=== PATIENT | male | born 1950 | race African-American/Black ===

== ENCOUNTER 2018-03-13 06:25 | Emergency (ER) | payer MEDICARE ==
[2018-03-13] MEDS ORDERED: Dexamethasone 10 MG/ML VIAL ONE (06:52)
[2018-03-13 07:05] LABS: #Basophils 0.1 thou/uL (0.0-0.2); #Eosinphils 0.4 thou/uL (0.0-0.7); #Lymphocytes 1.6 thou/uL (1.20-3.40); #Monocytes 1.2 thou/uL (0.11-0.59); #Neutrophils 5.9 thou/uL (1.40-6.50); %Basophils 0.6 % (0.0-1.0); %Eosinophils 3.9 % (0.0-10.0); %Lymphocytes 17.4 % (21.0-51.0); %Monocytes 13.3 % (0.0-10.0); %Neutrophils 64.8 % (42.0-75.0); Hemoglobin 12.6 g/dL (14.0-18.0); Mean Corpuscular HGB CONC 33.9 g/dL (32.0-36.0); Mean Corpuscular Volume 85.5 fL (78.0-98.0); Mean Platelet Volume 8.7 fL (7.4-10.4); Platelet Count 302 thou/uL (130-400); RBC Distribution Width 12.8 % (11.5-14.5); Red Blood Cell (RBC) Count 4.37 mill/uL (4.70-6.10); White Blood Cell (WBC) Count 9.1 thou/uL (4.8-10.8)
[2018-03-13 07:13] LABS: ALT (SGPT) Less than 7 U/L (8-55); AST (SGOT) 15 U/L (5-34); Albumin 3.7 g/dL (3.4-4.8); Alkaline Phosphatase 99 U/L (40-150); Anion Gap 11 mmol/L (10-20); BUN (Urea Nitrogen) 15 mg/dL (8.4-25.7); Bilirubin, Total 0.7 mg/dL (0.2-1.2); Calc. Creatinine Clearance 0 mL/min (70-130); Calcium 9.2 mg/dL (7.8-10.44); Carbon Dioxide 24 mmol/L (23-31); Chloride 104 mmol/L (98-107); Estimated GFR-MDRD 54; Globulin 4.9 g/dL (2.4-3.5); Glucose 113 mg/dL (80-115); Potassium 4.1 mmol/L (3.5-5.1); Protein, Total 8.6 g/dL (5.8-8.1); Sodium 135 mmol/L (136-145)
[2018-03-13 07:18] LABS: CKMB 0.9 ng/mL (0-6.6); Troponin I Less than 0.010 ng/mL (< 0.028)
--- NOTE | 2018-03-13 08:12 | RAD ---
2 VIEWS CHEST: Date: 03/13/18 COMPARISON: 09/02/16. HISTORY: Shortness of breath and cough that started on Tuesday. FINDINGS: Two views of the chest show normal sized cardiomediastinal silhouette. There is no evidence of consol idation, mass, or pleural effusion. Degenerative changes are seen in the spine. IMPRESSION: No evidence of acute cardiopulmonary disease. POS: [facility]
== END 2018-03-13 08:12 | disposition home or self-care (01) ==
LOC: ERS 06:25
DX: J40 Bronchitis, not specified as acute or chronic (principal); I25.10 Atherosclerotic heart disease of native coronary artery without angina pectoris; I10 Essential (primary) hypertension; F17.210 Nicotine dependence, cigarettes, uncomplicated; Z79.82 Long term (current) use of aspirin
CPT/HCPCS: 71046; 80053; 82553; 83880; 84484; 85025; 93005; 94640; 94760; 96374; J1100; J7620

== ENCOUNTER 2018-03-16 08:51 | Inpatient (IN) | payer MEDICARE ==
[2018-03-16 09:25] LABS: #Basophils 0.1 thou/uL (0.0-0.2); #Eosinphils 0.3 thou/uL (0.0-0.7); #Monocytes 0.6 thou/uL (0.11-0.59); #Neutrophils 7.1 thou/uL (1.40-6.50); %Basophils 0.7 % (0.0-1.0); %Eosinophils 3.4 % (0.0-10.0); %Lymphocytes 11.2 % (21.0-51.0); %Monocytes 6.6 % (0.0-10.0); %Neutrophils 78.1 % (42.0-75.0); Hemoglobin 12.7 g/dL (14.0-18.0); Mean Corpuscular HGB CONC 33.5 g/dL (32.0-36.0); Mean Corpuscular Hemoglobin 28.8 pg (27.0-31.0); Mean Corpuscular Volume 85.9 fL (78.0-98.0); Mean Platelet Volume 8.2 fL (7.4-10.4); Platelet Count 370 thou/uL (130-400); RBC Distribution Width 12.7 % (11.5-14.5); Red Blood Cell (RBC) Count 4.42 mill/uL (4.70-6.10); White Blood Cell (WBC) Count 9.1 thou/uL (4.8-10.8)
[2018-03-16 09:51] LABS: ALT (SGPT) 24 U/L (8-55); AST (SGOT) 33 U/L (5-34); Albumin 3.8 g/dL (3.4-4.8); Alkaline Phosphatase 119 U/L (40-150); Anion Gap 13 mmol/L (10-20); BUN (Urea Nitrogen) 20 mg/dL (8.4-25.7); Bilirubin, Total 0.5 mg/dL (0.2-1.2); CK (CPK) 240 U/L (30-200); Calc. Creatinine Clearance 0 mL/min (70-130); Calcium 9.1 mg/dL (7.8-10.44); Carbon Dioxide 21 mmol/L (23-31); Chloride 107 mmol/L (98-107); Estimated GFR-MDRD 54; Globulin 4.4 g/dL (2.4-3.5); Glucose 110 mg/dL (80-115); Potassium 4.6 mmol/L (3.5-5.1); Protein, Total 8.2 g/dL (5.8-8.1); Sodium 136 mmol/L (136-145)
[2018-03-16 09:55] LABS: CKMB 1.8 ng/mL (0-6.6); Troponin I Less than 0.010 ng/mL (< 0.028)
[2018-03-16] MEDS ORDERED: Piperacillin/Tazobactam 4.5 GM VIAL ONE (10:18)
--- NOTE | 2018-03-16 10:28 | RAD ---
PORTABLE CHEST: HISTORY: Dyspnea. COMPARISON: 03/13/2018 FINDINGS: Increased interstitial and hazy alveolar densities in the lung bases may represent mild infiltrate. The mid and upper lung crane are clear and unchanged. The heart and mediastinum are unremarkable. IMPRESSION: Question hazy lower lobe infiltrate. Upright PA and lateral views of the chest are recommended for better evaluation. POS: [facility]
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
[2018-03-16] MEDS ORDERED: Ondansetron ODT 4 MG TAB PO PRN (12:12)
[2018-03-16] MEDS ORDERED: Acetaminophen 325 MG TAB PO PRN ×2 (12:12→12:13)
[2018-03-16] MEDS ORDERED: Ondansetron ODT 4 MG TAB SL PRN (12:13)
[2018-03-16] MEDS ORDERED: Ondansetron PF 4 MG/2 ML Vial IVP PRN (12:13)
[2018-03-16] MEDS ORDERED: Albuterol Sulfate 1.25 MG/3 ML NEB NEB SCH (15:00)
[2018-03-16 15:02] VITALS: BMI 23.8
[2018-03-16] MEDS ORDERED: Albuterol Sulfate 2.5 mg/3 ml Neb NEB PRN (16:16)
[2018-03-16] MEDS: Nicotine 14 MG PATCH TD SCH (16:38)
[2018-03-16] MEDS ORDERED: Albuterol Sulfate 2.5 mg/3 ml Neb NEB SCH (17:00)
[2018-03-16] MEDS: guaiFENesin/DM ER PO SCH (20:50)
[2018-03-16] MEDS ORDERED: Benzonatate 100 MG CAP PO PRN (20:58)
--- NOTE | 2018-03-17 06:48 | PDOC.FM ---
- Subjective Subjective: NAEO. Patient states he feels well this AM. Denies any chest pain and says his SOB and cough have improved since admission. Still endorses a productive cough though. Denies any fever/chills or N/V. States he would like to quit smoking and is willing to try medication for this. - Objective MAR Reviewed: Yes Vital Signs & Weight: Vital Signs (12 hours) Temp Pulse Resp BP Pulse Ox 03/17/18 03:00 98.1 F 80 18 165/64 H 93 L 03/17/18 02:37 93 L 03/16/18 23:00 98.1 F 87 16 170/62 H 95 03/16/18 20:00 95 03/16/18 19:54 98.1 F 104 H 18 159/61 H 95 03/16/18 19:01 83 16 93 L Weight Weight 73.255 kg Result Diagrams: 03/16/18 09:13 03/17/18 03:39 <Cristiana Draper - Last Filed: 03/17/18 09:25> - Objective Vital Signs & Weight: Vital Signs (12 hours) Temp Pulse Resp BP BP Pulse Ox 03/17/18 10:54 97.8 F 82 22 H 157/72 H 92 L 03/17/18 09:27 171/73 H 03/17/18 09:25 94 L 03/17/18 07:06 94 L 03/17/18 07:04 89 20 94 L 03/17/18 07:00 97.5 F L 89 19 171/73 H 94 L 03/17/18 03:00 98.1 F 80 18 165/64 H 93 L 03/17/18 02:37 93 L Weight Weight 73.255 kg Result Diagrams: 03/16/18 09:13 03/17/18 03:39 <Geoffrey Ramos - Last Filed: 03/17/18 12:54> Phys Exam - Physical Examination Constitutional: NAD HEENT: moist MMs Neck: supple, full ROM Respiratory: wheezing present Diffuse wheezing heard throughout with coarse breath sounds most prominent in middle and lower lung crane; no increased work of breathing Cardiovascular: RRR, no significant murmur Gastrointestinal: no distention, positive bowel sounds Musculoskeletal: no edema, pulses present Neurological: non-focal, normal sensation, moves all 4 limbs Psychiatric: normal affect, A&O x 3 Skin: no rash, normal turgor Deviation from normal: digital clubbing noted <Cristiana Draper - Last Filed: 03/17/18 09:25> Dx/Plan (1) CKD (chronic kidney disease) stage 2, GFR 60-89 ml/min Code(s): N18.2 - CHRONIC KIDNEY DISEASE, STAGE 2 (MILD) Status: Chronic (2) HTN (hypertension) Code(s): I10 - ESSENTIAL (PRIMARY) HYPERTENSION Status: Chronic (3) Tobacco abuse Code(s): Z72.0 - TOBACCO USE Status: Chronic (4) Coronary artery disease Code(s): I25.10 - ATHSCL HEART DISEASE OF [place] CORONARY ARTERY W/O ANG PCTRS Status: Chronic (5) HLD (hyperlipidemia) Code(s): E78.5 - HYPERLIPIDEMIA, UNSPECIFIED Status: Chronic (6) Stented coronary artery Status: Chronic - Plan Plan: 67YOM w/ a PMH significant for HTN, HLD, CAD s/p stent placement, and tobacco use who presented to the ED with a CC of SOB that has been ongoing since last Tuesday. Suspected acute on chronic COPD exacerbation - Could be 2/2 bronchitis vs. questionable PNA. - CXR showed questionable B/L infiltrates. No elevated WBC or fever. Procal downtrended from 0.22 to 0.16 yesterday. - Will continue on ANGELIKA Duonebs but try to decrease frequency as tolerated by the patient. Will also continue PRN albuterol for SOB. - Will continue tessalon pearls & mucinex for cough. - Will coninue ANGELIKA PO steroids & levaquin. - Will continue PRN O2 supplementation to maintain adequate O2 sats. Patient satted between 93-99% on RA since admission. Suspected COPD - Patient has never been formally diagnosed with COPD but CXR is consistent w/ hyperexpansion consistent w/ COPD. - Patient also has a significant smoking history and clinical signs of chronic hypoxia including digital clubbing on exam. - Will consider initiating an ICS/LABA combo upon d/c and recommend follow-up w / PCP for PFTs to confirm diagnosis. CKD stage II - CKD documented as stage II per last clinic labs done 1 year ago. - BUN and Cr WNLs at 14/0.86 w/ eGFr of 90 after receiving IVFs yesterday. - Possible resolution of underlying kidney disease. Will continue to monitor. CAD s/p stent placement - Will resume home meds. HTN - Will resume home lisinopril but will increase dosage to 10mg QD given poorly controlled BP overnight w/ SBP ranging from 159-173. - Will continue to monitor closely. tobacco use - Nicotine patch. - Patient states he would like to quit smoking and is willing to try medication to help with this. - Will initiate therapy with wellbutrin. IVFs: none Abx: Levaquin DVT PPx: Lovenox GI PPx: famotidine Dispo: Possible d/c later today on Abx, steroids, and an ICS/LABA combination inhaler w/ recommendations to follow-up with PCP for PFTs to confirm COPD. <Cristiana Draper - Last Filed: 03/17/18 09:25> Attending Addendum - Attending Addendum Date/Time: 03/17/18 1253 I personally evaluated the patient and discussed the management with Dr. Draper. I agree with the History, Examination, Assessment and Plan documented above with any addition or exceptions noted below. With a low PCT, we can stop antibiotics. <Geoffrey Ramos - Last Filed: 03/17/18 12:54>
[2018-03-17 07:07] LABS: Anion Gap 13 mmol/L (10-20); BUN (Urea Nitrogen) 14 mg/dL (8.4-25.7); Calc. Creatinine Clearance 85 mL/min (70-130); Calcium 8.8 mg/dL (7.8-10.44); Carbon Dioxide 21 mmol/L (23-31); Chloride 109 mmol/L (98-107); Estimated GFR-MDRD Greater than 90; Glucose 90 mg/dL (80-115); Potassium 4.3 mmol/L (3.5-5.1); Sodium 139 mmol/L (136-145)
[2018-03-17] MEDS ORDERED: predniSONE 20 MG TAB PO SCH (08:00)
[2018-03-17] MEDS ORDERED: Lisinopril 10 MG TAB PO SCH (09:00)
[2018-03-17] MEDS ORDERED: Famotidine 20 MG TAB PO SCH (09:00)
[2018-03-17] MEDS ORDERED: Enoxaparin Sodium 40 MG/0.4 ML SYRINGE SC SCH (09:00)
[2018-03-17] MEDS ORDERED: Lisinopril 2.5 MG TAB PO SCH (09:00)
[2018-03-17] MEDS ORDERED: Aspirin 81 mg Enteric Coated Tablet PO SCH (09:00)
[2018-03-17] MEDS ORDERED: Clopidogrel Bisulfate 75 MG TAB PO SCH (09:00)
[2018-03-17] MEDS: guaiFENesin/DM ER PO SCH (09:26)
[2018-03-17] MEDS ORDERED: Bupropion 150 MG SR TAB PO SCH (12:00)
[2018-03-17] MEDS: Nicotine 14 MG PATCH TD SCH (12:35)
[2018-03-17 16:36] VITALS: TEMP 97.6
[2018-03-17 18:13] VITALS: BP 180/60
--- NOTE | 2018-03-17 18:28 | PDOC.EVN ---
Event Note - Event Note Event Note: Checked a manual BP at bedside at ~18:15 that was 180/63. Patient denied having any alarm symptoms such as headache, vision changes, chest pain, or SOB. Counseled patient and family about dangers of dramatically lowering BP too quickly and increased risk of stroke associated with this, which is why we currently opted not to treat the patient's BP before discharge. Also reiterated that if patient does develop any alarm symptoms such as the ones he denied that he should report to the ED for evaluation. Patient and family endorsed understanding. Instructed the patient to schedule an appt / [facility] physicians first thing Tuesday morning to be seen and evaluated for better HTN control on an outpatient basis.
[2018-03-17] MEDS ORDERED: Atorvastatin Calcium 40 MG TAB PO SCH (21:00)
--- NOTE | 2018-03-18 02:20 | DIS-2 ---
DATE OF ADMISSION: 03/16/2018 DATE OF DISCHARGE: 03/17/2018 RESIDENT: Cristiana Draper M.D. ADMITTING ATTENDING: Aida Queen M.D. DISCHARGE ATTENDING: Aida Queen M.D. CONSULTS: None. PROCEDURES: Chest x-ray which showed questionable hazy lower lobe infiltrates with an unremarkable h eart and mediastinum. PRIMARY DIAGNOSES: 1. Suspected acute chronic obstructive pulmonary disease exacerbation secondary to bronchitis or pos sible bacterial pneumonia. 2. Hypertension. 3. Tobacco abuse. SECONDARY DIAGNOSES: 1. Coronary artery disease. 2. Hyperlipidemia. 3. Chronic kidney disease stage 2. DISCHARGE MEDICATIONS: 1. Albuterol sulfate 90 mcg inhaled q.i.d. p.r.n. 2. Aspirin 81 mg p.o. daily. 3. Tessalon 100 mg capsules p.o. every 8 hours p.r.n. for cough. 4. Atorvastatin calcium 40 mg p.o. at bedtime. 5. Mucinex DM 1 tab p.o. every 12 hours for cough. 6. Lisinopril 10 mg p.o. daily. 7. Prednisone 20 mg p.o. for 3 days. 8. Spiriva HandiHaler 18 mcg inhaled daily. 9. Wellbutrin-SR 150 mg p.o. daily for 2 days and b.i.d. for the remaining prescription. 10. Levaquin 750 mg p.o. daily for 30 days. DISCONTINUED MEDICATIONS: The only medication is azithromycin 250 mg tablets p.o. daily. HISTORY OF PRESENT ILLNESS AND HOSPITAL COURSE: The patient is a 67-year-old -[place] gentle man with a past medical history significant for [id number] smoking history as well as coronary maggie ry disease status post stent placement x1, hypertension, and hyperlipidemia who presented to the [facility] with chief complaint of increased shortness of breath and cough that started last Fr iday. Of note, the patient was seen in the emergency department on 03/13/2018 for similar symptoms w ere diagnosed with bronchitis and sent home on a Z-John and albuterol inhaler and Tessalon Perles. Ho wever, the patient reported that his symptoms did not improve after being on these medications and at tempted to make an appointment with his PCP, but was unable to be seen by them, so subsequently repor dirk to the emergency department for further evaluation. On presentation to the emergency department, the patient's vitals were significant for slightly elevated blood pressure of 164/68; however, the p atient was breathing normally and satting 91% on room air. Routine labs and chest x-ray were obtaine d, which revealed the patient had a normal white blood cell count of 9.1 and a slightly worsened lolis l function with a creatinine of 1.56 and an estimated GFR of 54. His BNP was only mildly elevated at 142 and his initial procalcitonin was in the indeterminate range of 0.22. His lactic acid was withi n normal limits at 0.8. The patient's chest x-ray was significant for some questionable bilateral op acities in the bases, so he was given one dose of IV vancomycin and Zosyn as well as 1 liter of vijaya l saline and 2 DuoNeb treatments in the emergency department. He was then continued on normal saline at 30 mL per kilogram and moved to the floor for evaluation by the medical team and close observatio n overnight. Upon initial evaluation by the medical team, the patient was noted to have significant wheezing and rhonchi throughout and was therefore started on scheduled DuoNebs, p.o. steroids, transi tioned to p.o. Levaquin for antibiotics with albuterol available via respiratory therapy p.r.n. The patient received scheduled DuoNeb treatments overnight and by the following morning was feeling his s ymptoms had significantly improved. He stated he would possibly be willing to go home later today. Of note, the patient's renal function significantly improved after receiving a liter of IV fluids in the emergency department so much that by the day morning of discharge. His creatinine had decreased to 0.86 and his eGFR was estimated at greater than 90. The patient's procalcitonin had also downtren ded to 0.16. The patient's DuoNebs were therefore switched from scheduled to p.r.n. after the patien t received one additional scheduled dose early the morning of discharge. After evaluating him later that afternoon, the patient stated that he felt much improved and was ready to be discharged home on p.o. antibiotics and steroids. He was therefore cleared to be discharged home as his pulmonary exam was markedly improved and instructed to schedule followup appointment with his PCP 1 day next week. The patient endorsed understanding. Regarding the patient's hypertension, the patient reported that his primary care physician had taken him off all antihypertensive medications and per clinic chart re view, he has only documented antihypertensive medicine was lisinopril 2.5 mg p.o. daily. However, th e patient's blood pressure remained significantly elevated overnight with systolic pressures ranging from 173-159 overnight. His daily lisinopril dose was therefore increased from 2.5 to 10 mg p.o. silvio ly and he was instructed to follow up with his primary care physician regarding close monitoring of t his hypertension. DISCHARGE DISPOSITION: Stable. DISCHARGE INSTRUCTIONS: 1. Location: Home. 2. Diet: Heart healthy diet, low sodium diet. 3. Activity: Activity as tolerated. 4. Followup: The patient was instructed to follow up with his primary care physician, Dr. Kieran santa at [facility] within 1 week of discharge.
[2018-03-18] MEDS ORDERED: Bupropion 150 MG SR TAB PO SCH (09:00)
--- NOTE | 2018-03-18 23:07 | EKG ---
Test Reason : SOB Blood Pressure : / mmHG Vent. Rate : 077 BPM Atrial Rate : 077 BPM P-R Int : 122 ms QRS Dur : 084 ms QT Int : 380 ms P-R-T Axes : 072 053 048 degrees QTc Int : 430 ms Normal sinus rhythm Voltage criteria for left ventricular hypertrophy Abnormal ECG Confirmed by KATHLEEN DAVIS ([id number]), editorial assistant FADI PATINO ([id number]) on 03/18/2018 11:07:23 PM Referred By: RYAN Confirmed By:KATHLEEN DAVIS
== END 2018-03-17 18:40 | disposition home or self-care (01) | DRG 192 ==
LOC: ERS 08:51 → T4-A 10:35
PROVIDERS: ADMIT Family Medicine; ATTEND Family Medicine
DX: J44.1 Chronic obstructive pulmonary disease with (acute) exacerbation (principal); I25.10 Atherosclerotic heart disease of native coronary artery without angina pectoris; E78.5 Hyperlipidemia, unspecified; I12.9 Hypertensive chronic kidney disease with stage 1 through stage 4 chronic kidney disease, or unspecified chronic kidney disease; N18.2 Chronic kidney disease, stage 2 (mild); F17.210 Nicotine dependence, cigarettes, uncomplicated
CPT/HCPCS: 36415; 71045; 71046; 80048; 80053; 82553; 83605; 83880; 84145; 84484; 85025; 87040; 87804; 93005; 94640; 94760; 96374; J1100; J1650; J2543; J3370; J7506; J7620

== ENCOUNTER 2018-08-07 16:47 | Emergency (ER) | payer MEDICARE ==
--- NOTE | 2018-08-07 17:37 | RAD ---
RIGHT HIP THREE VIEWS: History: Right hip pain. FINDINGS: Mild joint space narrowing and osteophytosis. Femoral head contour maintained. No acute fracture, dis location, or aggressive osseous erosions. IMPRESSION: Mild osteoarthritic changes right hip. POS: [facility]
--- NOTE | 2018-08-07 17:51 | RAD ---
RIGHT SHOULDER THREE VIEWS: History: Right shoulder pain. FINDINGS: Acromioclavicular and glenohumeral alignment are maintained. Mild to moderate osteophytosis. Amorphis e calcification projects over the supraspinatus tendon. Similar in appearance to prior exam. No acute fracture, dislocation, or aggressive osseous erosions. IMPRESSION: Calcific tendinosis. Mild osteoarthritic changes. POS: [facility]
[2018-08-07] MEDS ORDERED: Dexamethasone 4 mg/ml Vial ONE (17:55)
[2018-08-07] MEDS ORDERED: Ketorolac Tromethamine 30 MG/ML VIAL ONE (17:55)
[2018-08-07] MEDS ORDERED: Dexamethasone 10 MG/ML VIAL ONE (17:59)
== END 2018-08-07 18:35 | disposition home or self-care (01) ==
LOC: ERS 16:47
DX: M75.31 Calcific tendinitis of right shoulder (principal); M54.5 Low back pain; M53.3 Sacrococcygeal disorders, not elsewhere classified; I25.10 Atherosclerotic heart disease of native coronary artery without angina pectoris; E78.5 Hyperlipidemia, unspecified; F17.210 Nicotine dependence, cigarettes, uncomplicated; I10 Essential (primary) hypertension; Z79.82 Long term (current) use of aspirin; Z79.51 Long term (current) use of inhaled steroids; Z79.899 Other long term (current) drug therapy
CPT/HCPCS: 96372; J1100; J1885

== ENCOUNTER 2018-08-09 21:27 | Emergency (ER) | payer MEDICARE ==
[2018-08-09] MEDS ORDERED: Cyclobenzaprine 10 MG TAB ONE (22:07)
== END 2018-08-09 22:10 | disposition home or self-care (01) ==
LOC: ERS 21:27
DX: M25.511 Pain in right shoulder (principal); E78.5 Hyperlipidemia, unspecified; I10 Essential (primary) hypertension; I25.10 Atherosclerotic heart disease of native coronary artery without angina pectoris; F17.210 Nicotine dependence, cigarettes, uncomplicated; Z79.899 Other long term (current) drug therapy; Z79.82 Long term (current) use of aspirin
CPT/HCPCS: 99282

== ENCOUNTER 2019-04-11 23:09 | Observation (INO) | payer MEDICARE ==
[2019-04-11 23:46] LABS: #Basophils 0.1 thou/uL (0.0-0.2); #Eosinphils 0.1 thou/uL (0.0-0.7); #Lymphocytes 1.9 thou/uL (1.20-3.40); #Monocytes 0.8 thou/uL (0.11-0.59); #Neutrophils 6.3 thou/uL (1.40-6.50); %Basophils 0.6 % (0.0-1.0); %Eosinophils 1.1 % (0.0-10.0); %Lymphocytes 20.4 % (21.0-51.0); %Monocytes 8.9 % (0.0-10.0); Mean Corpuscular HGB CONC 33.4 g/dL (32.0-36.0); Mean Corpuscular Hemoglobin 29.2 pg (27.0-31.0); Mean Corpuscular Volume 87.5 fL (78.0-98.0); Mean Platelet Volume 9.3 fL (7.4-10.4); Platelet Count 219 thou/uL (130-400); RBC Distribution Width 12.8 % (11.5-14.5); Red Blood Cell (RBC) Count 3.78 mill/uL (4.70-6.10); White Blood Cell (WBC) Count 9.2 thou/uL (4.8-10.8)
[2019-04-12 00:08] LABS: ALT (SGPT) Less than 7 U/L (8-55); AST (SGOT) 16 U/L (5-34); Albumin 3.4 g/dL (3.4-4.8); Alkaline Phosphatase 77 U/L (40-110); Anion Gap 12 mmol/L (10-20); BUN (Urea Nitrogen) 19 mg/dL (8.4-25.7); Bilirubin, Total 0.5 mg/dL (0.2-1.2); Calc. Creatinine Clearance 0 mL/min (70-130); Calcium 8.2 mg/dL (7.8-10.44); Carbon Dioxide 20 mmol/L (23-31); Chloride 109 mmol/L (98-107); Estimated GFR-MDRD 56; Globulin 3.7 g/dL (2.4-3.5); Glucose 108 mg/dL (80-115); Potassium 4.4 mmol/L (3.5-5.1); Protein, Total 7.1 g/dL (5.8-8.1); Sodium 137 mmol/L (136-145)
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
[2019-04-12] MEDS ORDERED: Ondansetron ODT 4 MG TAB PO PRN (01:46)
[2019-04-12] MEDS ORDERED: Acetaminophen 325 MG TAB PO PRN (01:46)
[2019-04-12 02:00] VITALS: BMI 24.0
[2019-04-12] MEDS ORDERED: Sodium Chloride 0.9% 1,000 ML IV SCH (02:00)
[2019-04-12 04:45] LABS: Amphetamine Not Detected (NotDetected); Barbiturates Screen Not Detected (NotDetected); Benzodiazepine Screen Not Detected (NotDetected); Cocaine Metabolite Screen Not Detected (NotDetected); Medtox Control Line Valid? VALID (VALID); Medtox Reader # READER 1; Methadone Not Detected (NotDetected); Methamphetamine Not Detected (NotDetected); Opiate Screen Not Detected (NotDetected); Oxycodone Screen Not Detected (NotDetected); Phencyclidine (PCP) Not Detected (NotDetected); THC/Cannabinoid Screen Detected (NotDetected); Tricyclic Screen Not Detected (NotDetected)
[2019-04-12 05:15] LABS: Cardiac Risk 4.6 (Less than 4.5)
[2019-04-12 05:17] LABS: Troponin I 0.013 ng/mL (< 0.028)
--- NOTE | 2019-04-12 08:01 | CT ---
PRELIMINARY REPORT/[facility]/EMERGENCY AFTER HOURS PROCEDURE: PROCEDURE INFORMATION: Exam: CT Head Without Contrast Exam date and time: 04/12/2019 12:23 AM Age: 68 years old Clinical history: Syncope and collapse; Patient HX: 68m reports to ED C/O witnessed syncope. PT repor ts he became dizzy, sweaty, and passed out for several seconds. When PT came to, PT reports he vomite d. PT denies cp, SOB, inconstinence. Medications aspirin. Pmhx stent (dr. Greco, 9 years ago, with stress test 1.5 months ago). reports PT stated his "stomach hurt, " went to the bathro , came back out and she heard him hit the floor. When she got to him, he came to and wasn't acting right, then passed out again TECHNIQUE: Imaging protocol: Computed tomography of the head without contrast. COMPARISON: No relevant prior studies available. FINDINGS: Brain: There is no acute intracranial hemorrhage, mass effect or midline shift. No large acute territ orial infarct identified. There are patchy regions of hypodensity in the periventricular and subcorti fariba white matter, likely on the basis of chronic microvascular ischemic disease. Ventricles: The ventricles and sulci are prominent in size, which is likely related to global cerebra l volume loss. Bones/joints: Unremarkable. No acute fracture. Sinuses: Visualized sinuses are unremarkable. No fluid levels. Mastoid air cells: Visualized mastoid air cells are well aerated. Soft tissues: Unremarkable. IMPRESSION: No acute intracranial hemorrhage, mass effect or midline shift. Thank you for allowing us to participate in the care of your patient. Dictated and Authenticated by: Eav Marrero MD 04/12/2019 12:40 AM Central Time ([place] & [place]) FINAL REPORT EMERGENCY AFTER HOURS CT BRAIN: I agree with the preliminary report provided by [facility]. No acute intracranial abnormality demonstrated. Exam is compared with prior dated 06/21/14. Basal carie glia calcifications are stable. Midline structures are not deviated. No acute infarct or hemorrhage i s noted. POS:
--- NOTE | 2019-04-12 08:16 | RAD ---
CHEST 1 VIEW: Date: 04/12/19 INDICATION: Syncopal episode. COMPARISON: Prior exam dated 03/16/18. FINDINGS: Chronic lung changes are stable. Mild cardiomegaly persists. No pleural effusion or pneumothorax is e vident. No acute osseous abnormality is noted. IMPRESSION: Stable chronic findings as above. POS: BH
[2019-04-12] MEDS ORDERED: Enoxaparin Sodium 40 MG/0.4 ML SYRINGE SC SCH (09:00)
[2019-04-12] MEDS ORDERED: Aspirin 81 mg Enteric Coated Tablet PO SCH (09:00)
[2019-04-12 11:15] VITALS: BP 167/70; TEMP 96.8
[2019-04-12] MEDS ORDERED: Rosuvastatin 20 MG TAB PO SCH (21:00)
--- NOTE | 2019-04-13 08:13 | DIS ---
DATE OF ADMISSION: 04/12/2019 DATE OF DISCHARGE: 04/12/2019 ADMITTING ATTENDING: Dr. Patel Echeverria DISCHARGE ATTENDING: Dr. Patel Echeverria RESIDENT: Dr. Ana Washington PROCEDURES: 1. Chest x-ray, stable, chronic lung changes with mild cardiomegaly. No pleural effusion or pneumothorax. No acute osseous abnormality. 2. Brain CT. No acute intracranial abnormality. Basal ganglia calcifications. Stable. No acute infarct or hemorrhage noted. 3. Echocardiogram, ejection fraction estimated at 55% to 60%. The left atrium is mildly dilated. Mild mitral regurgitation present. Moderate aortic stenosis present. Moderate aortic regurgitation noted. [id number] tricuspid regurgitation. PRIMARY DIAGNOSES: 1. Syncope and collapse, likely secondary to vasovagal episode. 2. Moderate aortic stenosis. 3. Hypertension. 4. History of coronary artery disease, status post stents x2. 5. Hyperlipidemia. 6. Chronic obstructive pulmonary disease. 7. Chronic kidney disease stage 2. DISCHARGE MEDICATIONS: 1. Albuterol sulfate 90 mcg inhalation q.4 hours p.r.n. 2. Aspirin 81 mg p.o. daily. 3. Rosuvastatin 20 mg p.o. at bedtime. 4. Amlodipine 5 mg p.o. daily. 5. Benzonatate 100 mg p.o. t.i.d. 6. Naproxen 375 mg p.o. b.i.d. 7. Cyclobenzaprine 10 mg p.o. t.i.d. HISTORY OF PRESENT ILLNESS/HOSPITAL COURSE: This is a 68-year-old male, who presented to the emergency department after having 2 syncopal events at home. The patient was reportedly smoking his turkey outside and walked into the house and went to the restroom. He then noted that he woke up on the ground, but family thinks he was only down for a few seconds. The patient denied any urinary incontinence, shaking, or postictal confusion. The patient had vomited prior to the event, but had not been sick with fever, chills, sweats, nausea, diarrhea, or any other ailment. The patient denied any shortness of breath, chest pain, or palpitations. He states that this has not happened before. The patient states he does follow up fairly closely with Dr. 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 He has been noted to have [id number] aortic stenosis in the past with the last echo being in 2017. The patient saw Dr. Werner approximately 3 to 4 months ago, at which time he had an EKG done and medication changes were made. He was started on Crestor 20 mg for hyperlipidemia as well as amlodipine for hypertension. The patient does have a history of coronary artery disease; however, he is not currently on a beta- samira. I am uncertain as to why he is not on a beta-samira unless it is secondary to his underlying COPD. The patient did well throughout the duration of his hospital stay. He was adamant that he go home. He refused labs to include the last troponin and a repeat BMP to further evaluate his kidney function. Of note, troponins were negative and stable and there was not any concern for NSTEMI. Additionally, the patient's creatinine appears to be at baseline, although given his renal function, it was advised that he have it repeated. He likely was dehydrated at the time the initial lab was drawn. The patient was agreeable to having the echo done, although we did let him leave prior to discharge and will notify him of the results. If he does have severe aortic stenosis requiring a TAVR procedure, then we will make sure this is coordinated through his primary care physician at [facility]. The patient was stable for discharge home. His orthostatics were negative. Return precautions were given. DISPOSITION: Stable. DISCHARGE INSTRUCTIONS: 1. Location: Home. 2. Activity: Cardiopulmonary limitations. 3. Diet: Heart healthy. 4. Followup: The patient is to follow up with his PCP within 7 days of discharge from the hospital, his PCP is [facility]. Additionally, the patient is to follow up with Dr. Werner within 7 days of discharge from the hospital. Job ID: [id number] [facility] CENTERKenny
--- NOTE | 2019-04-14 21:09 | EKG ---
Test Reason : Blood Pressure : / mmHG Vent. Rate : 069 BPM Atrial Rate : 069 BPM P-R Int : 138 ms QRS Dur : 096 ms QT Int : 406 ms P-R-T Axes : 067 059 053 degrees QTc Int : 435 ms Normal sinus rhythm Voltage criteria for left ventricular hypertrophy Abnormal ECG Confirmed by RAOUL RAMIREZ ([id number]), photograph editor FADI PATINO ([id number]) on 04/14/2019 9:07:42 PM Referred By: Confirmed By:RAOUL RAMIREZ
== END 2019-04-12 12:29 | disposition home or self-care (01) ==
LOC: ERS 23:09 → 2SW 04-12 01:31
PROVIDERS: ADMIT Student in an Organized Health Care Education/Training Program; ATTEND Student in an Organized Health Care Education/Training Program
DX: R55 Syncope and collapse (principal); I12.9 Hypertensive chronic kidney disease with stage 1 through stage 4 chronic kidney disease, or unspecified chronic kidney disease; N18.2 Chronic kidney disease, stage 2 (mild); I25.10 Atherosclerotic heart disease of native coronary artery without angina pectoris; E78.5 Hyperlipidemia, unspecified; J44.9 Chronic obstructive pulmonary disease, unspecified; F17.210 Nicotine dependence, cigarettes, uncomplicated; M19.90 Unspecified osteoarthritis, unspecified site; Z79.82 Long term (current) use of aspirin; Z79.899 Other long term (current) drug therapy; Z95.5 Presence of coronary angioplasty implant and graft; Z95.1 Presence of aortocoronary bypass graft
CPT/HCPCS: 70450; 71045; 80053; 80061; 80306; 84443; 84484 ×2; 85025; 93005; 93306; 96360; 96361; 96372; 97139; 99285; G0378; 36415; J1650

== ENCOUNTER 2019-06-10 12:37 | Emergency (ER) | payer MEDICARE ==
--- NOTE | 2019-06-10 13:27 | RAD ---
Portable chest: HISTORY: Abdominal pain and vomiting COMPARISON: 04/12/2019 FINDINGS: Lungs are clear of infiltrate. No evidence of vascular congestion. There is a new nodular d ensity overlying the left midlung measuring 1.8 cm. Recommend further investigation with chest CT. Heart and mediastinum unremarkable. Visualized osseous structures unremarkable. IMPRESSION:Evidence of new nodular density overlying left midlung. Recommend chest CT.
[2019-06-10] MEDS ORDERED: Ondansetron PF 4 MG/2 ML Vial ONE (13:43)
[2019-06-10 13:54] LABS: Mean Corpuscular Hemoglobin 28.5 pg (27.0-31.0); Mean Corpuscular Volume 86.3 fL (78.0-98.0); Mean Platelet Volume 9.9 fL (7.4-10.4); Platelet Count 209 thou/uL (130-400); RBC Distribution Width 12.9 % (11.5-14.5); Red Blood Cell (RBC) Count 4.57 mill/uL (4.70-6.10); White Blood Cell (WBC) Count 9.2 thou/uL (4.8-10.8)
[2019-06-10] MEDS ORDERED: Iopamidol-370 76% 500 ML 1 ML ONE (13:57)
[2019-06-10 14:10] LABS: Band 1 % (5-11); Lymphocytes 9 % (21-51); MDiff Complete? YES; Monocytes 8 % (0-10); Neutrophil 81 % (42-75); Platelet Morphology Comment Appears Adequate; RBC Morphology Normal; Vacuoles SLIGHT
[2019-06-10 14:15] LABS: ALT (SGPT) Less than 7 U/L (8-55); AST (SGOT) 16 U/L (5-34); Albumin 3.8 g/dL (3.4-4.8); Alkaline Phosphatase 85 U/L (40-110); Anion Gap 13 mmol/L (10-20); BUN (Urea Nitrogen) 19 mg/dL (8.4-25.7); Bilirubin, Total 0.8 mg/dL (0.2-1.2); Calc. Creatinine Clearance 0 mL/min (70-130); Calcium 8.9 mg/dL (7.8-10.44); Carbon Dioxide 22 mmol/L (23-31); Chloride 106 mmol/L (98-107); Estimated GFR-MDRD 53; Globulin 4.4 g/dL (2.4-3.5); Glucose 102 mg/dL (80-115); Potassium 4.5 mmol/L (3.5-5.1); Protein, Total 8.2 g/dL (5.8-8.1); Sodium 136 mmol/L (136-145)
[2019-06-10 14:32] LABS: Bacteria/HPF None Seen HPF (None Seen); Bilirubin Negative (Negative); Blood, Urine 1+ (Negative); Clarity Clear (Clear); Glucose, Urine (Dipstick) Normal (Negative); Leukocyte Negative Leu/uL (Negative); Nitrite Negative (Negative); Protein, Urine (Dipstick) Negative (Neg-Trace); RBC/HPF 0-3 HPF (0-3); Squamous Epithelial 0-3 HPF (0-3); Urobilinogen Normal mg/dL (Less than 2); WBC/HPF 0-3 HPF (0-3)
--- NOTE | 2019-06-10 15:05 | CT ---
EXAM: CT of the chest with contrast CT of the abdomen and pelvis with contrast HISTORY: Vomiting and fever that started this morning. Nodule seen on chest x-ray COMPARISON: Chest x-ray 06/10/2019 TECHNIQUE: 1. Multiple contiguous axial images were obtained in a CT the chest with contrast. Coronal and sagitt al reformats were performed. 2. Multiple contiguous axial images were obtained and a CT of the abdomen and pelvis with contrast. C oronal and sagittal reformats were performed. FINDINGS: CT CHEST: HEART: Normal in size without focal cardiac abnormality. Calcifications in the coronary arteries. MEDIASTINUM: No hilar or mediastinal lymphadenopathy. LUNGS: Emphysematous changes are seen in the lungs. There is a 1.8 cm spiculated nodule in the lingul a. 2 adjacent nodular opacities measuring up to 4 mm in size are seen in the right lower lobe on image 51 and 49. PLEURAL SPACE: No pneumothorax or pleural effusion. CHEST WALL SOFT TISSUES: Unremarkable CT ABDOMEN/PELVIS: ABDOMEN: LIVER: within normal limits. BILE DUCTS: Normal caliber. GALLBLADDER: No calcified gallstones. Normal caliber wall. PANCREAS: within normal limits. SPLEEN: within normal limits. ADRENALS: within normal limits. KIDNEYS: Nonobstructing punctate calcifications measuring up to 2 mm in size. PELVIS: REPRODUCTIVE ORGANS: No pelvic masses. URETERS: within normal limits. BLADDER: within normal limits. PERITONEUM: No ascites or free air, no fluid collection. BOWEL: Normal caliber. MESENTERY AND RETROPERITONEUM: No enlarged mesenteric or retroperitoneal lymph nodes. VESSELS: Atherosclerotic calcifications. ABDOMINAL WALL: within normal limits. OSSEOUS STRUCTURES: Degenerative changes in the spine. IMPRESSION: 1. Spiculated left upper lobe lung nodule. This is concerning for primary pulmonary malignancy. 2. No evidence of acute intra-abdominal/pelvic abnormality.
== END 2019-06-10 16:25 | disposition home or self-care (01) ==
LOC: ERS 12:37
DX: R11.2 Nausea with vomiting, unspecified (principal); R91.8 Other nonspecific abnormal finding of lung field; I25.10 Atherosclerotic heart disease of native coronary artery without angina pectoris; E78.5 Hyperlipidemia, unspecified; E78.00 Pure hypercholesterolemia, unspecified; I10 Essential (primary) hypertension; F17.210 Nicotine dependence, cigarettes, uncomplicated; Z79.82 Long term (current) use of aspirin; Z95.5 Presence of coronary angioplasty implant and graft; Z79.899 Other long term (current) drug therapy
CPT/HCPCS: 36415; 71045; 71260; 74177; 80053; 81003; 81015; 83605; 83690; 85025; 87804; 93005; 96361; 96374; J2405; Q9967

== ENCOUNTER 2020-09-01 13:32 | Outpatient (CLI) | payer MEDICARE | END 2020-09-01 13:33 | disposition home or self-care (01) | LOC: BICCT 13:32 | PROVIDERS: ATTEND Family Medicine | DX: I99.9 Unspecified disorder of circulatory system (principal); G93.89 Other specified disorders of brain | CPT/HCPCS: 70450 ==

== ENCOUNTER 2021-01-01 17:52 | Observation (INO) | payer MEDICARE ==
[2021-01-01 19:11] LABS: #Lymphocytes 0.6 thou/uL (1.20-3.40); #Neutrophils 0.9 thou/uL (1.40-6.50); %Basophils 1.5 % (0.0-1.0); %Eosinophils 0.6 % (0.0-10.0); %Lymphocytes 37.6 % (21.0-51.0); %Monocytes 2.7 % (0.0-10.0); %Neutrophils 57.5 % (42.0-75.0); Mean Corpuscular HGB CONC 34.7 g/dL (32.0-36.0); Mean Corpuscular Hemoglobin 30.1 pg (27.0-31.0); Mean Corpuscular Volume 86.7 fL (78.0-98.0); Mean Platelet Volume 6.8 fL (7.4-10.4); Platelet Count 44 thou/uL (130-400); RBC Distribution Width 17.3 % (11.5-14.5); White Blood Cell (WBC) Count 1.6 thou/uL (4.8-10.8)
[2021-01-01 19:30] LABS: Anisocytosis SLIGHT = 6-15 cells (100X) (0-5/hpf); MDiff Complete? YES; Ovalocytes SLIGHT = 2-5 cells (100X) (0-1/hpf); Platelet Morphology Comment Appears Decreased; Poikilocytosis SLIGHT = 6-15 cells (100X) (0-5/hpf); Polychromasia SLIGHT = 2-3 cells (100X) (0-2/hpf); Reflex for Review?? YES; Schistocytes SLIGHT = 2-5 cells (100X) (0-1/hpf); Tear Drops SLIGHT = 2-5 cells (100X) (0-1/hpf)
[2021-01-01 19:36] LABS: ALT (SGPT) 10 U/L (8-55); AST (SGOT) 15 U/L (5-34); Alkaline Phosphatase 49 U/L (40-110); Anion Gap 10 mmol/L (10-20); BUN (Urea Nitrogen) 27 mg/dL (8.4-25.7); Bilirubin, Total 0.3 mg/dL (0.2-1.2); Calc. Creatinine Clearance 0 mL/min (70-130); Calcium 8.3 mg/dL (7.8-10.44); Carbon Dioxide 22 mmol/L (23-31); Chloride 110 mmol/L (98-107); Globulin 3.2 g/dL (2.4-3.5); Glucose 106 mg/dL (83-110); Magnesium 1.7 mg/dL (1.6-2.6); Potassium 4.1 mmol/L (3.5-5.1); Protein, Total 6.2 g/dL (5.8-8.1); Sodium 138 mmol/L (136-145)
[2021-01-02 01:44] VITALS: BMI 22.3
[2021-01-02] MEDS ORDERED: Acetaminophen 325 MG TAB PO PRN (01:49)
[2021-01-02] MEDS ORDERED: Ondansetron PF 4 MG/2 ML Vial IVP PRN (01:49)
[2021-01-02] MEDS ORDERED: Nicotine 14 MG PATCH TD SCH (02:00)
[2021-01-02] MEDS ORDERED: Albuterol 200 PUFF (6.7GM INHALER) INH PRN (02:03)
[2021-01-02 02:36] LABS: Band 7 % (5-11); Eosinophils 1 % (0-10); Hemoglobin 6.7 g/dL (14.0-18.0); Lymphocytes 45 % (21-51); MDiff Complete? YES; Mean Corpuscular HGB CONC 35.1 g/dL (32.0-36.0); Mean Corpuscular Hemoglobin 30.3 pg (27.0-31.0); Mean Corpuscular Volume 86.3 fL (78.0-98.0); Mean Platelet Volume 10.7 fL (7.4-10.4); Monocytes 7 % (0-10); Neutrophil 37 % (42-75); Platelet Count 43 thou/uL (130-400); Platelet Morphology Comment Appears Decreased; RBC Distribution Width 16.4 % (11.5-14.5); Reactive Lymphocytes 3 % (0-10); Red Blood Cell (RBC) Count 2.22 mill/uL (4.70-6.10); Schistocytes SLIGHT = 2-5 cells (100X) (0-1/hpf); White Blood Cell (WBC) Count 1.8 thou/uL (4.8-10.8)
[2021-01-02] MEDS ORDERED: Mometasone 100 MCG/Formoterol 5 MCG 120 PUFF INHALER INH SCH (06:30)
[2021-01-02] MEDS ORDERED: MULTIVIT/IRON SULF/FOLIC ACID 1 EACH TAB PO SCH (09:00)
[2021-01-02] MEDS ORDERED: Lisinopril 2.5 MG TAB PO SCH (09:00)
[2021-01-02] MEDS ORDERED: Aspirin 81 mg Enteric Coated Tablet PO SCH (09:00)
[2021-01-02] MEDS ORDERED: Gabapentin 300 MG CAP PO SCH (09:00)
[2021-01-02] MEDS: Dexamethasone 4 MG TAB PO SCH ×2 (09:52→14:01)
[2021-01-02 12:12] VITALS: BP 142/65; TEMP 99.1
[2021-01-02 12:16] LABS: Hemoglobin 8.2 g/dL (14.0-18.0); Mean Corpuscular HGB CONC 34.1 g/dL (32.0-36.0); Mean Corpuscular Hemoglobin 29.7 pg (27.0-31.0); Mean Corpuscular Volume 87.1 fL (78.0-98.0); Mean Platelet Volume 11.2 fL (7.4-10.4); Platelet Count 44 thou/uL (130-400); RBC Distribution Width 16.1 % (11.5-14.5); Red Blood Cell (RBC) Count 2.74 mill/uL (4.70-6.10); White Blood Cell (WBC) Count 1.7 thou/uL (4.8-10.8)
[2021-01-02 12:50] LABS: SARS-CoV-2 PCR by NAA Not Detected (NotDetected)
[2021-01-02 19:56] LABS: SARS-CoV-2 IgG Ab Non-Reactive (NonReactive)
[2021-01-02 19:57] LABS: SARS-CoV-2 IgG Index 0.02 S/CO (< 1.40)
== END 2021-01-02 15:15 | disposition home or self-care (01) ==
LOC: ERS 17:52 → 2NO 20:11
PROVIDERS: ADMIT Family Medicine; ATTEND Family Medicine
DX: D61.810 Antineoplastic chemotherapy induced pancytopenia (principal); T45.1X5A Adverse effect of antineoplastic and immunosuppressive drugs, initial encounter; C34.90 Malignant neoplasm of unspecified part of unspecified bronchus or lung; C79.31 Secondary malignant neoplasm of brain; I25.10 Atherosclerotic heart disease of native coronary artery without angina pectoris; J44.9 Chronic obstructive pulmonary disease, unspecified; M19.90 Unspecified osteoarthritis, unspecified site; G62.9 Polyneuropathy, unspecified; I95.9 Hypotension, unspecified; F12.10 Cannabis abuse, uncomplicated; Z87.891 Personal history of nicotine dependence; Z79.52 Long term (current) use of systemic steroids; Z79.82 Long term (current) use of aspirin; Z79.899 Other long term (current) drug therapy; Z95.5 Presence of coronary angioplasty implant and graft; Z20.822 Contact with and (suspected) exposure to COVID-19
CPT/HCPCS: 36415; 36430; 71045; 80053; 82607; 82746; 83735; 83880; 84484; 85007; 85025; 85027; 85060; 86769; 86850; 86900; 86901; 93005; 94760; J8540; P9016; U0003; U0005

== ENCOUNTER 2022-02-27 19:09 | Inpatient (IN) | payer MEDICARE ==
[2022-02-27 20:02] LABS: #Eosinphils 0.1 thou/uL (0.0-0.7); #Lymphocytes 1.1 thou/uL (1.20-3.40); #Monocytes 1.3 thou/uL (0.11-0.59); #Neutrophils 6.1 thou/uL (1.40-6.50); %Basophils 0.6 % (0.0-1.0); %Eosinophils 0.6 % (0.0-10.0); %Lymphocytes 12.6 % (21.0-51.0); %Monocytes 14.7 % (0.0-10.0); %Neutrophils 71.5 % (42.0-75.0); Hemoglobin 8.7 g/dL (14.0-18.0); Mean Corpuscular Hemoglobin 30.8 pg (27.0-31.0); Mean Corpuscular Volume 93.3 fL (78.0-98.0); Mean Platelet Volume 7.3 fL (7.4-10.4); Platelet Count 368 thou/uL (130-400); RBC Distribution Width 14.2 % (11.5-14.5); Red Blood Cell (RBC) Count 2.83 mill/uL (4.70-6.10); White Blood Cell (WBC) Count 8.5 thou/uL (4.8-10.8)
[2022-02-27 20:12] LABS: ALT (SGPT) 9 U/L (8-55); AST (SGOT) 29 U/L (5-34); Albumin 3.3 g/dL (3.4-4.8); Alkaline Phosphatase 219 U/L (40-110); Anion Gap 17 mmol/L (10-20); BUN (Urea Nitrogen) 27 mg/dL (8.4-25.7); Bilirubin, Total 0.5 mg/dL (0.2-1.2); Calc. Creatinine Clearance 0 mL/min (70-130); Carbon Dioxide 22 mmol/L (23-31); Chloride 103 mmol/L (98-107); Estimated GFR 34; Globulin 4.5 g/dL (2.4-3.5); Glucose 97 mg/dL (83-110); Potassium 5.2 mmol/L (3.5-5.1); Protein, Total 7.8 g/dL (5.8-8.1); Sodium 137 mmol/L (136-145)
[2022-02-27] MEDS ORDERED: Morphine 2 MG/ML VIAL ONE (20:58)
[2022-02-27 21:54] LABS: SARS-CoV-2 NAA Rapid Test Not Detected (NotDetected)
[2022-02-27 23:45] LABS: Troponin I 0.017 ng/mL (< 0.028)
[2022-02-28] MEDS ORDERED: Acetaminophen 325 MG TAB PO PRN (01:35)
[2022-02-28] MEDS ORDERED: Senokot S 8.6-50 MG TAB PO PRN (01:35)
[2022-02-28] MEDS ORDERED: Bisacodyl 5 MG TAB PO PRN (01:35)
[2022-02-28] MEDS ORDERED: Ondansetron ODT 4 MG TAB PO PRN (01:35)
[2022-02-28] MEDS ORDERED: Guaifenesin DM 100-10/5 ML UDCUP PO PRN (01:35)
[2022-02-28] MEDS ORDERED: Nitroglycerin 0.4 MG TAB (25 Tab Bottle) SL PRN (01:35)
[2022-02-28] MEDS ORDERED: Ondansetron PF 4 MG/2 ML Vial IVP PRN (01:35)
[2022-02-28] MEDS ORDERED: Acetaminophen 650 MG Suppository PR PRN (01:35)
[2022-02-28] MEDS ORDERED: Bisacodyl 10 MG SUPP PR PRN (01:35)
[2022-02-28 01:57] VITALS: BMI 21.7
[2022-02-28 02:42] LABS: Hemoglobin 8.4 g/dL (14.0-18.0); Mean Corpuscular HGB CONC 33.4 g/dL (32.0-36.0); Mean Corpuscular Hemoglobin 31.1 pg (27.0-31.0); Mean Corpuscular Volume 93.2 fL (78.0-98.0); Platelet Count 340 thou/uL (130-400); Red Blood Cell (RBC) Count 2.68 mill/uL (4.70-6.10); White Blood Cell (WBC) Count 7.8 thou/uL (4.8-10.8)
[2022-02-28 02:54] LABS: Troponin I 0.018 ng/mL (< 0.028)
[2022-02-28 03:11] LABS: Anion Gap 15 mmol/L (10-20); BUN (Urea Nitrogen) 27 mg/dL (8.4-25.7); Calc. Creatinine Clearance 32 mL/min (70-130); Carbon Dioxide 22 mmol/L (23-31); Cardiac Risk 3.2 (Less than 4.5); Chloride 105 mmol/L (98-107); Cholesterol 133 mg/dl (< 200 Desired); Estimated GFR 36; Glucose 103 mg/dL (83-110); HDL Cholesterol 42 mg/dL (>60 Neg Risk); LDL Cholesterol, Calculated 73 mg/dL; Potassium 4.5 mmol/L (3.5-5.1); Sodium 137 mmol/L (136-145); Triglycerides 92 mg/dL (Less than 150)
[2022-02-28 03:32] LABS: Band 5 % (5-11); Hypochromia SLIGHT = 6-15 cells (100X) (0-5/hpf); Lymphocytes 22 % (21-51); MDiff Complete? YES; Monocytes 7 % (0-10); Neutrophil 66 % (42-75); Platelet Morphology Comment Appears Adequate
[2022-02-28] MEDS ORDERED: hydrALAZINE 20 MG/ML VIAL SLOW IVP PRN (05:06)
[2022-02-28] MEDS ORDERED: Aspirin Chewable 81 MG TAB PO SCH (09:00)
[2022-02-28] MEDS ORDERED: Aspirin 300 MG Suppository PR SCH (09:00)
[2022-02-28] MEDS: Heparin 5,000 UNITS/ML VIAL SC SCH ×3 (10:30→20:57)
[2022-02-28] MEDS: Famotidine 20 MG TAB PO SCH (10:39)
[2022-02-28] MEDS ORDERED: Ondansetron ODT 8 MG TAB PO PRN (10:43)
[2022-02-28] MEDS ORDERED: Albuterol Sulfate 1.25 MG/3 ML NEB NEB PRN (11:32)
[2022-02-28] MEDS ORDERED: traMADol HCl 50 MG TAB PO PRN (12:10)
[2022-02-28] MEDS ORDERED: Dexamethasone 10 MG in Sodium Chloride 0.9% 50 ML IVPB SCH (12:15)
[2022-02-28] MEDS ORDERED: Lactated Ringer's 1,000 ML IV SCH (12:15)
[2022-02-28] MEDS ORDERED: Dexamethasone 4 mg/ml Vial SLOW IVP SCH (12:15)
[2022-02-28] MEDS: Gabapentin 100 MG CAP PO SCH ×2 (17:52→20:49)
[2022-02-28] MEDS: Mometasone 100 MCG/Formoterol 5 MCG 120 PUFF INHALER INH SCH (18:37)
[2022-02-28] MEDS: Dexamethasone 4 MG TAB PO SCH (20:49)
[2022-03-01] MEDS: Mometasone 100 MCG/Formoterol 5 MCG 120 PUFF INHALER INH SCH (07:31)
[2022-03-01] MEDS ORDERED: MULTIVIT/IRON SULF/FOLIC ACID 1 EACH TAB PO SCH (09:00)
[2022-03-01 09:27] LABS: #Basophils 0.1 thou/uL (0.0-0.2); #Lymphocytes 1.5 thou/uL (1.20-3.40); #Monocytes 0.9 thou/uL (0.11-0.59); #Neutrophils 7.1 thou/uL (1.40-6.50); %Basophils 0.9 % (0.0-1.0); %Eosinophils 0.4 % (0.0-10.0); %Lymphocytes 15.8 % (21.0-51.0); %Monocytes 9.4 % (0.0-10.0); %Neutrophils 73.6 % (42.0-75.0); Hemoglobin 10.2 g/dL (14.0-18.0); Mean Corpuscular HGB CONC 32.1 g/dL (32.0-36.0); Mean Corpuscular Hemoglobin 30.5 pg (27.0-31.0); Mean Corpuscular Volume 95.2 fL (78.0-98.0); Mean Platelet Volume 7.5 fL (7.4-10.4); Platelet Count 390 thou/uL (130-400); RBC Distribution Width 14.2 % (11.5-14.5); Red Blood Cell (RBC) Count 3.35 mill/uL (4.70-6.10); White Blood Cell (WBC) Count 9.7 thou/uL (4.8-10.8)
[2022-03-01 09:40] LABS: Anion Gap 18 mmol/L (10-20); BUN (Urea Nitrogen) 26 mg/dL (8.4-25.7); Calc. Creatinine Clearance 37 mL/min (70-130); Calcium 9.6 mg/dL (7.8-10.44); Carbon Dioxide 20 mmol/L (23-31); Chloride 104 mmol/L (98-107); Estimated GFR 43; Glucose 112 mg/dL (83-110); Potassium 4.8 mmol/L (3.5-5.1); Sodium 137 mmol/L (136-145)
[2022-03-01] MEDS: Gabapentin 100 MG CAP PO SCH ×2 (09:58→15:11)
[2022-03-01] MEDS: Dexamethasone 4 MG TAB PO SCH (09:59)
[2022-03-01] MEDS: Famotidine 20 MG TAB PO SCH (09:59)
[2022-03-01] MEDS: Heparin 5,000 UNITS/ML VIAL SC SCH ×2 (10:24→15:11)
[2022-03-01 15:21] VITALS: BP 152/67; TEMP 98.7
[2022-03-03] MEDS ORDERED: FLU VACC QS2022-23(65YR UP)/PF 240 MCG/0.7 ML SYRINGE IM ONE (09:00)
== END 2022-03-01 16:45 | disposition home or self-care (01) | DRG 180 ==
LOC: ERS 19:09 → 2NO 22:44 → OBSVTOIN 03-01 11:31
PROVIDERS: ADMIT Internal Medicine; ATTEND Internal Medicine
DX: C34.90 Malignant neoplasm of unspecified part of unspecified bronchus or lung (principal); G93.6 Cerebral edema; C78.7 Secondary malignant neoplasm of liver and intrahepatic bile duct; C79.31 Secondary malignant neoplasm of brain; N17.9 Acute kidney failure, unspecified; D84.821 Immunodeficiency due to drugs; I25.10 Atherosclerotic heart disease of native coronary artery without angina pectoris; Z95.5 Presence of coronary angioplasty implant and graft; N18.9 Chronic kidney disease, unspecified; I12.9 Hypertensive chronic kidney disease with stage 1 through stage 4 chronic kidney disease, or unspecified chronic kidney disease; E87.5 Hyperkalemia; R19.7 Diarrhea, unspecified; D63.0 Anemia in neoplastic disease; Z86.73 Personal history of transient ischemic attack (TIA), and cerebral infarction without residual deficits; J44.9 Chronic obstructive pulmonary disease, unspecified; T45.1X5A Adverse effect of antineoplastic and immunosuppressive drugs, initial encounter
CPT/HCPCS: 36415; 70450; 71045; 78451; 80048; 80053; 80061; 84484; 85025; 87804; 93005; 93306; 93970; 94760; 96372; 96374; 96375; A9540; G0378; J1100; J1644; J2270; J7120; J8540; U0002

== ENCOUNTER 2022-03-14 07:29 | Inpatient (IN) | payer MEDICARE, OTHER ==
[2022-03-14 09:06] LABS: #Monocytes 2.4 thou/uL (0.11-0.59); #Neutrophils 15.5 thou/uL (1.40-6.50); %Basophils 0.3 % (0.0-1.0); %Eosinophils 0.2 % (0.0-10.0); %Lymphocytes 5.2 % (21.0-51.0); %Monocytes 12.5 % (0.0-10.0); %Neutrophils 81.8 % (42.0-75.0); Hemoglobin 9.9 g/dL (14.0-18.0); Mean Corpuscular HGB CONC 31.5 g/dL (32.0-36.0); Mean Corpuscular Hemoglobin 29.7 pg (27.0-31.0); Mean Corpuscular Volume 94.3 fl (78.0-98.0); Mean Platelet Volume 8.4 fL (7.4-10.4); Platelet Count 290 thou/uL (130-400); RBC Distribution Width 14.5 % (11.5-14.5); Red Blood Cell (RBC) Count 3.32 mill/uL (4.70-6.10)
[2022-03-14 09:26] LABS: Anion Gap 14 mmol/L (10-20); BUN (Urea Nitrogen) 34 mg/dL (8.4-25.7); Calc. Creatinine Clearance 0 mL/min (70-130); Carbon Dioxide 21 mmol/L (23-31); Chloride 104 mmol/L (98-107); Potassium 4.8 mmol/L (3.5-5.1); Sodium 134 mmol/L (136-145)
[2022-03-14 09:27] LABS: ALT (SGPT) 17 U/L (8-55); AST (SGOT) 24 U/L (5-34); Albumin 3.2 g/dL (3.4-4.8); Alkaline Phosphatase 141 U/L (40-110); Bilirubin, Total 0.6 mg/dL (0.2-1.2); Calcium 8.6 mg/dL (7.8-10.44); Estimated GFR 47; Glucose 88 mg/dL (83-110); Magnesium 2.1 mg/dL (1.6-2.6); Protein, Total 7.2 g/dL (5.8-8.1)
[2022-03-14 10:09] LABS: Bilirubin Negative (Negative); Blood, Urine Negative (Negative); Clarity Clear (Clear); Glucose, Urine (Dipstick) Normal (Negative); Ketone, Urine Negative (Negative); Leukocyte 500 Leu/uL (Negative); Nitrite Negative (Negative); Protein, Urine (Dipstick) Negative (Neg-Trace); RBC/HPF 0-3 HPF (0-3); Specific Gravity, Urine 1.018 (1.002-1.036); Squamous Epithelial 0-3 HPF (0-3); Urobilinogen Normal mg/dL (Less than 2); WBC/HPF 21-50 HPF (0-3); pH, Urine 5.5 (5.0-9.0)
[2022-03-14 10:17] LABS: Bacteria/HPF 1+ HPF (None Seen)
[2022-03-14] MEDS ORDERED: Acetaminophen 500 MG TAB ONE (13:34)
[2022-03-14] MEDS ORDERED: cefTRIAXone\\ROCEPHIN 2 GM VIAL ONE (13:34)
[2022-03-14] MEDS ORDERED: Acetaminophen 325 MG TAB PO PRN ×2 (13:34→14:37)
[2022-03-14] MEDS ORDERED: Ondansetron ODT 4 MG TAB PO PRN (13:34)
[2022-03-14] MEDS ORDERED: Iopamidol-370 76% 500 ML 1 ML ONE (13:52)
[2022-03-14] MEDS ORDERED: Ondansetron ODT 8 MG TAB PO PRN (14:36)
[2022-03-14] MEDS ORDERED: Albuterol Sulfate 2.5 mg/3 ml Neb NEB PRN (15:03)
[2022-03-14 16:16] VITALS: BMI 21.4
[2022-03-14] MEDS: Gabapentin 100 MG CAP PO SCH ×2 (16:52→21:09)
[2022-03-14] MEDS: Lactated Ringer's 1,000 ML IV SCH (16:52)
[2022-03-14] MEDS: HYDROcodone/Acetaminophen 5/325 mg Tablet PO PRN (18:48)
[2022-03-14] MEDS: Mometasone 100 MCG/Formoterol 5 MCG 120 PUFF INHALER INH SCH (19:18)
[2022-03-15 05:56] LABS: Anion Gap 12 mmol/L (10-20); BUN (Urea Nitrogen) 30 mg/dL (8.4-25.7); Calc. Creatinine Clearance 41 mL/min (70-130); Calcium 8.5 mg/dL (7.8-10.44); Carbon Dioxide 24 mmol/L (23-31); Chloride 103 mmol/L (98-107); Estimated GFR 49; Glucose 82 mg/dL (83-110); Potassium 5.2 mmol/L (3.5-5.1); Sodium 134 mmol/L (136-145)
[2022-03-15 06:07] LABS: Hemoglobin 8.9 g/dL (14.0-18.0); MDiff Complete? YES; Mean Corpuscular HGB CONC 31.7 g/dL (32.0-36.0); Mean Corpuscular Hemoglobin 29.6 pg (27.0-31.0); Mean Corpuscular Volume 93.7 fl (78.0-98.0); Mean Platelet Volume 8.5 fL (7.4-10.4); Platelet Count 252 thou/uL (130-400); RBC Distribution Width 14.3 % (11.5-14.5); Red Blood Cell (RBC) Count 3.02 mill/uL (4.70-6.10); White Blood Cell (WBC) Count 20.2 thou/uL (4.8-10.8)
[2022-03-15 06:08] LABS: Band 3 % (5-11); Hypochromia SLIGHT = 6-15 cells (100X) (0-5/hpf); Lymphocytes 2 % (21-51); Monocytes 13 % (0-10); Neutrophil 82 % (42-75); Platelet Morphology Comment Appears Adequate
[2022-03-15] MEDS: HYDROcodone/Acetaminophen 5/325 mg Tablet PO PRN ×2 (07:51→21:03)
[2022-03-15] MEDS: Gabapentin 100 MG CAP PO SCH ×3 (07:52→21:01)
[2022-03-15] MEDS: Lactated Ringer's 1,000 ML IV SCH ×3 (07:53→19:38)
[2022-03-15] MEDS: Mometasone 100 MCG/Formoterol 5 MCG 120 PUFF INHALER INH SCH ×2 (08:04→20:01)
[2022-03-15] MEDS ORDERED: Acetaminophen 500 MG TAB PO SCH (08:45)
[2022-03-15] MEDS ORDERED: Enoxaparin Sodium 30 MG/0.3 ML SYRINGE SC SCH (09:00)
[2022-03-15] MEDS ORDERED: Dexamethasone 4 MG TAB PO SCH (09:00)
[2022-03-15] MEDS: MULTIVIT/IRON SULF/FOLIC ACID 1 EACH TAB PO SCH (09:42)
[2022-03-15] MEDS: Cefepime 1 GM in Sodium Chloride 0.9% 100 ML IVPB SCH (12:16)
[2022-03-15] MEDS ORDERED: cefTRIAXone\\ROCEPHIN 2 GM in Sodium Chloride 0.9% 100 ML IVPB SCH (13:00)
[2022-03-16] MEDS: Cefepime 1 GM in Sodium Chloride 0.9% 100 ML IVPB SCH ×2 (01:31→12:06)
[2022-03-16 05:16] LABS: #Eosinphils 0.1 thou/uL (0.0-0.7); #Lymphocytes 0.8 thou/uL (1.20-3.40); #Monocytes 1.8 thou/uL (0.11-0.59); #Neutrophils 12.8 thou/uL (1.40-6.50); %Eosinophils 0.6 % (0.0-10.0); %Lymphocytes 5.3 % (21.0-51.0); %Monocytes 11.5 % (0.0-10.0); %Neutrophils 82.6 % (42.0-75.0); Hemoglobin 8.1 g/dL (14.0-18.0); Mean Corpuscular HGB CONC 31.8 g/dL (32.0-36.0); Mean Corpuscular Hemoglobin 29.6 pg (27.0-31.0); Mean Corpuscular Volume 93.1 fl (78.0-98.0); Mean Platelet Volume 8.6 fL (7.4-10.4); Platelet Count 231 thou/uL (130-400); RBC Distribution Width 14.1 % (11.5-14.5); Red Blood Cell (RBC) Count 2.75 mill/uL (4.70-6.10); White Blood Cell (WBC) Count 15.5 thou/uL (4.8-10.8)
[2022-03-16 05:35] LABS: Anion Gap 10 mmol/L (10-20); BUN (Urea Nitrogen) 31 mg/dL (8.4-25.7); Calc. Creatinine Clearance 42 mL/min (70-130); Calcium 8.5 mg/dL (7.8-10.44); Carbon Dioxide 25 mmol/L (23-31); Chloride 106 mmol/L (98-107); Estimated GFR 50; Glucose 113 mg/dL (83-110); Potassium 4.9 mmol/L (3.5-5.1); Sodium 136 mmol/L (136-145)
[2022-03-16] MEDS: Lactated Ringer's 1,000 ML IV SCH (06:02)
[2022-03-16] MEDS: Mometasone 100 MCG/Formoterol 5 MCG 120 PUFF INHALER INH SCH ×2 (08:30→18:24)
[2022-03-16] MEDS: MULTIVIT/IRON SULF/FOLIC ACID 1 EACH TAB PO SCH (08:59)
[2022-03-16] MEDS: Gabapentin 100 MG CAP PO SCH ×3 (09:00→20:51)
[2022-03-16] MEDS: Dexamethasone 4 MG TAB PO SCH (09:01)
[2022-03-16] MEDS: Enoxaparin Sodium 40 MG/0.4 ML SYRINGE SC SCH (09:01)
[2022-03-16] MEDS: HYDROcodone/Acetaminophen 5/325 mg Tablet PO PRN (12:13)
[2022-03-16] MEDS ORDERED: Doxycycline 100 MG CAP PO SCH (21:00)
[2022-03-17] MEDS: Cefepime 1 GM in Sodium Chloride 0.9% 100 ML IVPB SCH (00:29)
[2022-03-17 06:17] LABS: #Lymphocytes 0.8 thou/uL (1.20-3.40); #Neutrophils 8.9 thou/uL (1.40-6.50); %Basophils 0.4 % (0.0-1.0); %Eosinophils 0.2 % (0.0-10.0); %Lymphocytes 7.4 % (21.0-51.0); %Neutrophils 83.1 % (42.0-75.0); Mean Corpuscular HGB CONC 31.1 g/dL (32.0-36.0); Mean Corpuscular Hemoglobin 29.8 pg (27.0-31.0); Mean Platelet Volume 8.7 fL (7.4-10.4); Platelet Count 247 thou/uL (130-400); RBC Distribution Width 14.1 % (11.5-14.5); Red Blood Cell (RBC) Count 3.02 mill/uL (4.70-6.10); White Blood Cell (WBC) Count 10.7 thou/uL (4.8-10.8)
[2022-03-17 06:35] LABS: Anion Gap 12 mmol/L (10-20); BUN (Urea Nitrogen) 29 mg/dL (8.4-25.7); Calc. Creatinine Clearance 49 mL/min (70-130); Calcium 8.6 mg/dL (7.8-10.44); Carbon Dioxide 21 mmol/L (23-31); Chloride 108 mmol/L (98-107); Estimated GFR 61; Glucose 108 mg/dL (83-110); Potassium 5.2 mmol/L (3.5-5.1); Sodium 136 mmol/L (136-145)
[2022-03-17] MEDS: Gabapentin 100 MG CAP PO SCH ×3 (09:12→20:34)
[2022-03-17] MEDS: Dexamethasone 4 MG TAB PO SCH (09:13)
[2022-03-17] MEDS: Enoxaparin Sodium 40 MG/0.4 ML SYRINGE SC SCH (09:13)
[2022-03-17] MEDS: MULTIVIT/IRON SULF/FOLIC ACID 1 EACH TAB PO SCH (09:13)
[2022-03-17] MEDS: Mometasone 100 MCG/Formoterol 5 MCG 120 PUFF INHALER INH SCH ×2 (10:28→19:51)
[2022-03-17] MEDS: Cephalexin 250 MG CAP PO SCH ×2 (14:38→20:33)
[2022-03-18 05:34] LABS: #Lymphocytes 1.1 thou/uL (1.20-3.40); #Neutrophils 9.5 thou/uL (1.40-6.50); %Basophils 0.1 % (0.0-1.0); %Eosinophils 0.2 % (0.0-10.0); %Lymphocytes 9.8 % (21.0-51.0); %Monocytes 8.4 % (0.0-10.0); %Neutrophils 81.6 % (42.0-75.0); Hemoglobin 7.8 g/dL (14.0-18.0); Mean Corpuscular HGB CONC 31.8 g/dL (32.0-36.0); Mean Corpuscular Hemoglobin 29.4 pg (27.0-31.0); Mean Corpuscular Volume 92.5 fl (78.0-98.0); Mean Platelet Volume 8.6 fL (7.4-10.4); Platelet Count 249 thou/uL (130-400); RBC Distribution Width 14.2 % (11.5-14.5); Red Blood Cell (RBC) Count 2.66 mill/uL (4.70-6.10); White Blood Cell (WBC) Count 11.7 thou/uL (4.8-10.8)
[2022-03-18 05:49] LABS: Anion Gap 13 mmol/L (10-20); BUN (Urea Nitrogen) 30 mg/dL (8.4-25.7); Calc. Creatinine Clearance 45 mL/min (70-130); Calcium 8.5 mg/dL (7.8-10.44); Carbon Dioxide 23 mmol/L (23-31); Chloride 107 mmol/L (98-107); Estimated GFR 55; Glucose 96 mg/dL (83-110); Potassium 4.5 mmol/L (3.5-5.1); Sodium 138 mmol/L (136-145)
[2022-03-18] MEDS: Mometasone 100 MCG/Formoterol 5 MCG 120 PUFF INHALER INH SCH ×2 (07:25→18:52)
[2022-03-18] MEDS: Gabapentin 100 MG CAP PO SCH ×3 (08:50→20:33)
[2022-03-18] MEDS: Dexamethasone 4 MG TAB PO SCH (08:50)
[2022-03-18] MEDS: Enoxaparin Sodium 40 MG/0.4 ML SYRINGE SC SCH (08:50)
[2022-03-18] MEDS: Cephalexin 250 MG CAP PO SCH ×3 (08:50→20:32)
[2022-03-18] MEDS: MULTIVIT/IRON SULF/FOLIC ACID 1 EACH TAB PO SCH (08:50)
[2022-03-18] MEDS ORDERED: Losartan 25 MG TAB PO SCH (09:30)
[2022-03-19] MEDS: Mometasone 100 MCG/Formoterol 5 MCG 120 PUFF INHALER INH SCH ×2 (08:02→18:30)
[2022-03-19] MEDS: Dexamethasone 4 MG TAB PO SCH (08:26)
[2022-03-19] MEDS: Enoxaparin Sodium 40 MG/0.4 ML SYRINGE SC SCH (08:26)
[2022-03-19] MEDS: Losartan 25 MG TAB PO SCH (08:26)
[2022-03-19] MEDS: MULTIVIT/IRON SULF/FOLIC ACID 1 EACH TAB PO SCH (08:26)
[2022-03-19] MEDS: HYDROcodone/Acetaminophen 5/325 mg Tablet PO PRN (08:26)
[2022-03-19] MEDS: Gabapentin 100 MG CAP PO SCH ×3 (08:27→21:37)
[2022-03-19] MEDS: Cephalexin 250 MG CAP PO SCH ×3 (08:27→21:37)
[2022-03-20] MEDS: Mometasone 100 MCG/Formoterol 5 MCG 120 PUFF INHALER INH SCH ×2 (07:58→18:46)
[2022-03-20] MEDS: HYDROcodone/Acetaminophen 5/325 mg Tablet PO PRN (08:09)
[2022-03-20] MEDS: Gabapentin 100 MG CAP PO SCH ×3 (08:10→21:07)
[2022-03-20] MEDS: Dexamethasone 4 MG TAB PO SCH (08:10)
[2022-03-20] MEDS: Losartan 25 MG TAB PO SCH (08:11)
[2022-03-20] MEDS: Enoxaparin Sodium 40 MG/0.4 ML SYRINGE SC SCH (08:13)
[2022-03-20] MEDS: MULTIVIT/IRON SULF/FOLIC ACID 1 EACH TAB PO SCH (09:19)
[2022-03-20] MEDS: Cephalexin 250 MG CAP PO SCH ×2 (09:19→16:16)
[2022-03-20] MEDS: Lidocaine 5% Patch TD SCH (09:20)
[2022-03-20] MEDS ORDERED: Transdermal Patch Removal TOP SCH (21:00)
[2022-03-21 05:37] LABS: #Eosinphils 0.1 thou/uL (0.0-0.7); #Lymphocytes 1.7 thou/uL (1.20-3.40); #Monocytes 1.1 thou/uL (0.11-0.59); #Neutrophils 10.9 thou/uL (1.40-6.50); %Basophils 0.2 % (0.0-1.0); %Eosinophils 0.6 % (0.0-10.0); %Lymphocytes 12.4 % (21.0-51.0); %Neutrophils 78.8 % (42.0-75.0); Hemoglobin 9.4 g/dL (14.0-18.0); Mean Corpuscular HGB CONC 31.4 g/dL (32.0-36.0); Mean Corpuscular Hemoglobin 29.6 pg (27.0-31.0); Mean Corpuscular Volume 94.2 fl (78.0-98.0); Mean Platelet Volume 7.9 fL (7.4-10.4); Platelet Count 323 thou/uL (130-400); RBC Distribution Width 14.6 % (11.5-14.5); Red Blood Cell (RBC) Count 3.16 mill/uL (4.70-6.10); White Blood Cell (WBC) Count 13.8 thou/uL (4.8-10.8)
[2022-03-21 06:20] LABS: Anion Gap 13 mmol/L (10-20); BUN (Urea Nitrogen) 36 mg/dL (8.4-25.7); Calc. Creatinine Clearance 45 mL/min (70-130); Calcium 8.9 mg/dL (7.8-10.44); Carbon Dioxide 19 mmol/L (23-31); Chloride 109 mmol/L (98-107); Estimated GFR 55; Glucose 104 mg/dL (83-110); Potassium 4.4 mmol/L (3.5-5.1); Sodium 137 mmol/L (136-145)
[2022-03-21] MEDS: Mometasone 100 MCG/Formoterol 5 MCG 120 PUFF INHALER INH SCH (07:50)
[2022-03-21] MEDS: HYDROcodone/Acetaminophen 5/325 mg Tablet PO PRN (08:08)
[2022-03-21] MEDS: Dexamethasone 4 MG TAB PO SCH (08:08)
[2022-03-21] MEDS: Gabapentin 100 MG CAP PO SCH (09:33)
[2022-03-21] MEDS: Losartan 25 MG TAB PO SCH (09:35)
[2022-03-21] MEDS: Enoxaparin Sodium 40 MG/0.4 ML SYRINGE SC SCH (09:36)
[2022-03-21] MEDS: Lidocaine 5% Patch TD SCH (09:37)
[2022-03-21] MEDS: MULTIVIT/IRON SULF/FOLIC ACID 1 EACH TAB PO SCH (09:38)
[2022-03-21 10:51] VITALS: BP 143/55; TEMP 97.2
== END 2022-03-21 12:20 | disposition home or self-care (01) | DRG 871 ==
LOC: ERS 07:29 → MSONC 13:23
PROVIDERS: ADMIT Family Medicine; ATTEND Family Medicine
DX: A41.1 Sepsis due to other specified staphylococcus (principal); G93.6 Cerebral edema; C79.51 Secondary malignant neoplasm of bone; N39.0 Urinary tract infection, site not specified; C34.90 Malignant neoplasm of unspecified part of unspecified bronchus or lung; I69.954 Hemiplegia and hemiparesis following unspecified cerebrovascular disease affecting left non-dominant side; C78.7 Secondary malignant neoplasm of liver and intrahepatic bile duct; C79.31 Secondary malignant neoplasm of brain; Z20.822 Contact with and (suspected) exposure to COVID-19; E86.0 Dehydration; I25.10 Atherosclerotic heart disease of native coronary artery without angina pectoris; K21.9 Gastro-esophageal reflux disease without esophagitis; E87.5 Hyperkalemia; N18.31 Chronic kidney disease, stage 3a; D63.1 Anemia in chronic kidney disease; I12.9 Hypertensive chronic kidney disease with stage 1 through stage 4 chronic kidney disease, or unspecified chronic kidney disease; Z88.5 Allergy status to narcotic agent; Z79.51 Long term (current) use of inhaled steroids; Z79.899 Other long term (current) drug therapy
CPT/HCPCS: 36415; 70450; 71045; 71275; 80048; 80053; 81003; 81015; 83605; 83735; 84145; 84443; 84484; 85025; 87040; 87077; 87086; 87186; 93005; 94664; 94760; 96374; J0692; J0696; J1650; J3490; J7120; J8540; Q9967; U0003; U0005

== ENCOUNTER 2022-04-30 18:42 | Inpatient (IN) | payer OTHER ==
[~2022-04-30 18:42] MED LIST: Iopamidol-370 76% 500 ML 1 ML ONE
[2022-04-30] MEDS ORDERED: Pantoprazole 40 MG VIAL ONE (19:23)
[2022-04-30 19:49] LABS: #Lymphocytes 1.6 thou/uL (1.20-3.40); #Neutrophils 7.4 thou/uL (1.40-6.50); %Eosinophils 0.4 % (0.0-10.0); %Lymphocytes 15.5 % (21.0-51.0); %Monocytes 9.9 % (0.0-10.0); %Neutrophils 74.2 % (42.0-75.0); Hemoglobin 6.5 g/dL (14.0-18.0); Mean Corpuscular HGB CONC 30.9 g/dL (32.0-36.0); Mean Corpuscular Hemoglobin 28.4 pg (27.0-31.0); Mean Corpuscular Volume 91.7 fl (78.0-98.0); Mean Platelet Volume 8.6 fL (7.4-10.4); Platelet Count 271 10x3/uL (130-400); RBC Distribution Width 15.7 % (11.5-14.5); Red Blood Cell (RBC) Count 2.29 mill/uL (4.70-6.10)
[2022-04-30 20:08] LABS: ALT (SGPT) 28 U/L (8-55); AST (SGOT) 24 U/L (5-34); Albumin 2.9 g/dL (3.4-4.8); Alkaline Phosphatase 200 U/L (40-110); Anion Gap 16 mmol/L (10-20); BUN (Urea Nitrogen) 54 mg/dL (8.4-25.7); Bilirubin, Total 0.3 mg/dL (0.2-1.2); CK (CPK) 28 U/L (30-200); Calc. Creatinine Clearance 0 mL/min (70-130); Calcium 8.1 mg/dL (7.8-10.44); Carbon Dioxide 19 mmol/L (23-31); Chloride 111 mmol/L (98-107); Estimated GFR 45; Globulin 3.1 g/dL (2.4-3.5); Glucose 99 mg/dL (83-110); Lipase 22 U/L (8-78)
[2022-04-30 20:16] LABS: Sodium 141 mmol/L (136-145)
[2022-04-30] MEDS ORDERED: Ondansetron PF 4 MG/2 ML Vial IVP PRN (20:25)
[2022-04-30] MEDS ORDERED: Acetaminophen 325 MG TAB PO PRN (20:25)
[2022-04-30] MEDS ORDERED: Ondansetron ODT 4 MG TAB PO PRN (20:25)
[2022-04-30] MEDS ORDERED: Pantoprazole 40 MG VIAL IVP SCH (21:00)
[2022-04-30] MEDS ORDERED: Ondansetron PF 4 MG/2 ML Vial ONE (21:13)
[2022-04-30] MEDS ORDERED: Octreotide Acetate 1,250 MCG in Sodium Chloride 0.9% 250 ML 250 ML IVPB SCH (21:15)
[2022-04-30] MEDS ORDERED: Octreotide Acetate 50 MCG/ML AMP SLOW IVP SCH (21:15)
[2022-04-30 21:35] LABS: Bacteria/HPF None Seen HPF (None Seen); Bilirubin Negative (Negative); Blood, Urine Negative (Negative); Clarity Clear (Clear); Glucose, Urine (Dipstick) Normal (Negative); Ketone, Urine Negative (Negative); Leukocyte 75 Leu/uL (Negative); Nitrite Negative (Negative); Protein, Urine (Dipstick) Negative (Neg-Trace); RBC/HPF 0-3 HPF (0-3); Specific Gravity, Urine 1.022 (1.002-1.036); Squamous Epithelial None Seen HPF (0-3); Urobilinogen Normal mg/dL (Less than 2)
[2022-04-30] MEDS ORDERED: Albuterol 200 PUFF (6.7GM INHALER) INH PRN (21:58)
[2022-04-30 22:34] LABS: SARS-CoV-2 NAA Rapid Test Not Detected (NotDetected)
[2022-04-30 23:00] VITALS: BMI 24.3
[2022-05-01] MEDS: Lactated Ringer's 1,000 ML IV SCH ×4 (01:31→22:38)
[2022-05-01] MEDS: Pantoprazole 80 MG in Sodium Chloride 0.9% 100 ML IVPB SCH ×2 (01:32→15:28)
[2022-05-01 03:05] LABS: Hemoglobin 8.5 g/dL (14.0-18.0)
[2022-05-01 05:35] LABS: #Lymphocytes 1.5 thou/uL (1.20-3.40); #Neutrophils 7.3 thou/uL (1.40-6.50); %Basophils 0.1 % (0.0-1.0); %Eosinophils 0.2 % (0.0-10.0); %Lymphocytes 15.2 % (21.0-51.0); %Monocytes 10.1 % (0.0-10.0); %Neutrophils 74.4 % (42.0-75.0); Hemoglobin 7.7 g/dL (14.0-18.0); Mean Corpuscular HGB CONC 32.5 g/dL (32.0-36.0); Mean Corpuscular Hemoglobin 28.2 pg (27.0-31.0); Mean Corpuscular Volume 86.8 fl (78.0-98.0); Mean Platelet Volume 8.5 fL (7.4-10.4); Platelet Count 190 10x3/uL (130-400); RBC Distribution Width 14.5 % (11.5-14.5); Red Blood Cell (RBC) Count 2.71 mill/uL (4.70-6.10); White Blood Cell (WBC) Count 9.9 10x3/uL (4.8-10.8)
[2022-05-01 06:12] LABS: ALT (SGPT) 22 U/L (8-55); AST (SGOT) 23 U/L (5-34); Albumin 2.5 g/dL (3.4-4.8); Alkaline Phosphatase 156 U/L (40-110); Anion Gap 15 mmol/L (10-20); BUN (Urea Nitrogen) 62 mg/dL (8.4-25.7); Bilirubin, Total 0.6 mg/dL (0.2-1.2); Calc. Creatinine Clearance 46 mL/min (70-130); Calcium 7.8 mg/dL (7.8-10.44); Carbon Dioxide 17 mmol/L (23-31); Chloride 112 mmol/L (98-107); Estimated GFR 48; Globulin 2.6 g/dL (2.4-3.5); Glucose 111 mg/dL (83-110); Potassium 4.9 mmol/L (3.5-5.1); Protein, Total 5.1 g/dL (5.8-8.1); Sodium 139 mmol/L (136-145)
[2022-05-01] MEDS: Mometasone 100 MCG/Formoterol 5 MCG 120 PUFF INHALER INH SCH ×2 (08:07→18:50)
[2022-05-01 11:03] LABS: CKMB 1.5 ng/mL (0-6.6)
[2022-05-01 14:39] LABS: Troponin I 0.068 ng/mL (< 0.028)
[2022-05-01] MEDS: HYDROcodone/Acetaminophen 5/325 mg Tablet PO PRN (16:12)
[2022-05-01] MEDS: Gabapentin 100 MG CAP PO SCH ×2 (16:13→22:38)
[2022-05-01 17:20] LABS: Hemoglobin 7.4 g/dL (14.0-18.0)
[2022-05-01] MEDS ORDERED: Ketamine 50 MG/ML (10ML VIAL) ONE (19:52)
[2022-05-01] MEDS ORDERED: Midazolam HCl 2 mg/2 ml Vial ONE (19:52)
[2022-05-01] MEDS ORDERED: GoLYTELY 4,000 ml Bottle PO SCH (21:15)
[2022-05-02 00:36] LABS: Hemoglobin 8.3 g/dL (14.0-18.0)
[2022-05-02] MEDS ORDERED: Lactated Ringer's 500 ML IV SCH (01:30)
[2022-05-02 04:35] LABS: #Lymphocytes 1.1 thou/uL (1.20-3.40); #Neutrophils 6.5 thou/uL (1.40-6.50); %Basophils 0.1 % (0.0-1.0); %Eosinophils 0.4 % (0.0-10.0); %Lymphocytes 12.3 % (21.0-51.0); %Monocytes 11.2 % (0.0-10.0); Hemoglobin 8.1 g/dL (14.0-18.0); Mean Corpuscular HGB CONC 32.7 g/dL (32.0-36.0); Mean Corpuscular Hemoglobin 26.7 pg (27.0-31.0); Mean Corpuscular Volume 81.6 fl (78.0-98.0); Mean Platelet Volume 8.9 fL (7.4-10.4); Platelet Count 154 10x3/uL (130-400); RBC Distribution Width 20.4 % (11.5-14.5); Red Blood Cell (RBC) Count 3.05 mill/uL (4.70-6.10); White Blood Cell (WBC) Count 8.6 10x3/uL (4.8-10.8)
[2022-05-02 04:41] LABS: ALT (SGPT) 18 U/L (8-55); AST (SGOT) 28 U/L (5-34); Albumin 2.5 g/dL (3.4-4.8); Alkaline Phosphatase 123 U/L (40-110); Anion Gap 11 mmol/L (10-20); BUN (Urea Nitrogen) 51 mg/dL (8.4-25.7); Bilirubin, Total 0.6 mg/dL (0.2-1.2); Calc. Creatinine Clearance 43 mL/min (70-130); Calcium 8.1 mg/dL (7.8-10.44); Carbon Dioxide 22 mmol/L (23-31); Chloride 112 mmol/L (98-107); Estimated GFR 44; Globulin 2.5 g/dL (2.4-3.5); Glucose 87 mg/dL (83-110); Potassium 5.1 mmol/L (3.5-5.1); Sodium 140 mmol/L (136-145)
[2022-05-02] MEDS: Lactated Ringer's 1,000 ML IV SCH (06:08)
[2022-05-02] MEDS: Mometasone 100 MCG/Formoterol 5 MCG 120 PUFF INHALER INH SCH ×2 (07:18→18:22)
[2022-05-02] MEDS ORDERED: Pantoprazole 40 MG VIAL IVP SCH (09:00)
[2022-05-02] MEDS: Ferrous Sulfate 325 MG TAB PO SCH (09:24)
[2022-05-02] MEDS: Gabapentin 100 MG CAP PO SCH ×3 (09:24→21:02)
[2022-05-02] MEDS: Multivit, Therapeutic 1 TAB PO SCH (09:25)
[2022-05-02] MEDS: Pantoprazole 40 MG VIAL IVP SCH (09:25)
[2022-05-02] MEDS: Losartan 25 MG TAB PO SCH (09:25)
[2022-05-02] MEDS: Tamsulosin HCl 0.4 MG CAP PO SCH (09:26)
[2022-05-02] MEDS: HYDROcodone/Acetaminophen 5/325 mg Tablet PO PRN (09:27)
[2022-05-02] MEDS ORDERED: GoLYTELY 4,000 ml Bottle PO SCH (12:15)
[2022-05-02 13:17] LABS: Hemoglobin 8.1 g/dL (14.0-18.0)
[2022-05-03] MEDS: HYDROcodone/Acetaminophen 5/325 mg Tablet PO PRN (01:08)
[2022-05-03 05:54] LABS: #Lymphocytes 0.8 thou/uL (1.20-3.40); #Monocytes 1.3 thou/uL (0.11-0.59); #Neutrophils 8.2 thou/uL (1.40-6.50); %Basophils 0.1 % (0.0-1.0); %Eosinophils 0.1 % (0.0-10.0); %Lymphocytes 7.4 % (21.0-51.0); %Monocytes 12.8 % (0.0-10.0); %Neutrophils 79.7 % (42.0-75.0); Hemoglobin 8.5 g/dL (14.0-18.0); Mean Corpuscular HGB CONC 31.8 g/dL (32.0-36.0); Mean Corpuscular Hemoglobin 26.3 pg (27.0-31.0); Mean Corpuscular Volume 82.8 fl (78.0-98.0); Mean Platelet Volume 9.3 fL (7.4-10.4); Platelet Count 205 10x3/uL (130-400); RBC Distribution Width 19.9 % (11.5-14.5); Red Blood Cell (RBC) Count 3.23 mill/uL (4.70-6.10); White Blood Cell (WBC) Count 10.2 10x3/uL (4.8-10.8)
[2022-05-03 06:18] LABS: ALT (SGPT) 16 U/L (8-55); AST (SGOT) 30 U/L (5-34); Albumin 2.8 g/dL (3.4-4.8); Alkaline Phosphatase 133 U/L (40-110); Anion Gap 14 mmol/L (10-20); BUN (Urea Nitrogen) 34 mg/dL (8.4-25.7); Bilirubin, Total 0.7 mg/dL (0.2-1.2); Calc. Creatinine Clearance 45 mL/min (70-130); Calcium 8.2 mg/dL (7.8-10.44); Carbon Dioxide 21 mmol/L (23-31); Chloride 106 mmol/L (98-107); Estimated GFR 47; Globulin 2.8 g/dL (2.4-3.5); Potassium 4.7 mmol/L (3.5-5.1); Protein, Total 5.6 g/dL (5.8-8.1); Sodium 136 mmol/L (136-145)
[2022-05-03 06:37] LABS: Glucose 55 mg/dL (83-110)
[2022-05-03] MEDS ORDERED: Dextrose 50% Abboject 50 ML SYRINGE IVP PRN (07:15)
[2022-05-03] MEDS ORDERED: Dextrose 5% in Water 1,000 ML IV PRN (07:15)
[2022-05-03] MEDS: Mometasone 100 MCG/Formoterol 5 MCG 120 PUFF INHALER INH SCH (08:02)
[2022-05-03] MEDS: Ferrous Sulfate 325 MG TAB PO SCH (09:30)
[2022-05-03] MEDS: Gabapentin 100 MG CAP PO SCH (09:30)
[2022-05-03] MEDS: Losartan 25 MG TAB PO SCH (09:31)
[2022-05-03] MEDS: Multivit, Therapeutic 1 TAB PO SCH (09:31)
[2022-05-03] MEDS: Tamsulosin HCl 0.4 MG CAP PO SCH (09:32)
[2022-05-03] MEDS: Pantoprazole 40 MG VIAL IVP SCH (09:32)
[2022-05-03 13:28] VITALS: BP 135/61; TEMP 98.1
== END 2022-05-03 16:20 | disposition home or self-care (01) | DRG 378 ==
LOC: ERS 18:42 → 2NO 20:10
PROVIDERS: ADMIT Family Medicine; ATTEND Family Medicine
PROC: 30233N1 Transfusion of Nonautologous Red Blood Cells into Peripheral Vein, Percutaneous Approach (ICD-10-PCS; principal; 2022-04-30)
PROC: 02HV33Z Insertion of Infusion Device into Superior Vena Cava, Percutaneous Approach (ICD-10-PCS; 2022-05-01)
PROC: 0DJ08ZZ Inspection of Upper Intestinal Tract, Via Natural or Artificial Opening Endoscopic (ICD-10-PCS; 2022-05-01)
DX: K92.1 Melena (principal); C34.90 Malignant neoplasm of unspecified part of unspecified bronchus or lung; C79.31 Secondary malignant neoplasm of brain; C78.7 Secondary malignant neoplasm of liver and intrahepatic bile duct; I69.954 Hemiplegia and hemiparesis following unspecified cerebrovascular disease affecting left non-dominant side; I47.29 Other ventricular tachycardia; D62 Acute posthemorrhagic anemia; J44.9 Chronic obstructive pulmonary disease, unspecified; E78.00 Pure hypercholesterolemia, unspecified; I25.10 Atherosclerotic heart disease of native coronary artery without angina pectoris; I10 Essential (primary) hypertension; E86.0 Dehydration; K21.9 Gastro-esophageal reflux disease without esophagitis; G62.9 Polyneuropathy, unspecified; Z79.899 Other long term (current) drug therapy; Z79.51 Long term (current) use of inhaled steroids; Z95.5 Presence of coronary angioplasty implant and graft; Z87.891 Personal history of nicotine dependence; Z88.5 Allergy status to narcotic agent
CPT/HCPCS: 36415; 36416; 36430; 71045; 74177; 80053; 81003; 81015; 82274; 82550; 82553; 83690; 84484; 85025; 86850; 86900; 86901; 93005; 93010; 94664; 94760; 96361; 96365; 96367; 96374; C9113; J2250; J2354; J2405; J3490; J7050; J7120; P9016; Q9967

== ENCOUNTER 2022-06-04 14:29 | Emergency (ER) | payer OTHER, MEDICARE ==
[2022-06-04 15:35] LABS: #Lymphocytes 0.8 thou/uL (1.20-3.40); #Monocytes 0.8 thou/uL (0.11-0.59); #Neutrophils 8.9 thou/uL (1.40-6.50); %Eosinophils 0.1 % (0.0-10.0); %Lymphocytes 7.8 % (21.0-51.0); %Monocytes 7.7 % (0.0-10.0); %Neutrophils 84.4 % (42.0-75.0); Hemoglobin 9.2 g/dL (14.0-18.0); Mean Corpuscular Hemoglobin 26.7 pg (27.0-31.0); Mean Corpuscular Volume 83.4 fl (78.0-98.0); Mean Platelet Volume 8.6 fL (7.4-10.4); Platelet Count 410 10x3/uL (130-400); RBC Distribution Width 17.9 % (11.5-14.5); Red Blood Cell (RBC) Count 3.43 mill/uL (4.70-6.10); White Blood Cell (WBC) Count 10.6 10x3/uL (4.8-10.8)
[2022-06-04 15:45] LABS: INR-International Normal Ratio 1.3; PTT 38.7 sec (22.9-36.1); Prothrombin Time 16.6 sec (12.0-14.7)
[2022-06-04 15:58] LABS: ALT (SGPT) 26 U/L (8-55); AST (SGOT) 48 U/L (5-34); Albumin 3.2 g/dL (3.4-4.8); Alkaline Phosphatase 351 U/L (40-110); Anion Gap 18 mmol/L (10-20); BUN (Urea Nitrogen) 34 mg/dL (8.4-25.7); Bilirubin, Total 0.8 mg/dL (0.2-1.2); Calc. Creatinine Clearance 0 mL/min (70-130); Calcium 9.8 mg/dL (7.8-10.44); Carbon Dioxide 20 mmol/L (23-31); Chloride 104 mmol/L (98-107); Estimated GFR 44; Globulin 4.8 g/dL (2.4-3.5); Glucose 92 mg/dL (83-110); Sodium 137 mmol/L (136-145)
== END 2022-06-04 18:36 | disposition home or self-care (01) ==
LOC: ERS 14:29
DX: R04.0 Epistaxis (principal); J44.9 Chronic obstructive pulmonary disease, unspecified; I25.10 Atherosclerotic heart disease of native coronary artery without angina pectoris; E78.00 Pure hypercholesterolemia, unspecified; I10 Essential (primary) hypertension; Z79.899 Other long term (current) drug therapy
CPT/HCPCS: 36415; 71045; 80053; 83880; 84484; 85025; 85610; 85730; 93005

== ENCOUNTER 2022-06-17 18:27 | Inpatient (IN) | payer MEDICARE, OTHER ==
[2022-06-17 20:18] LABS: Bacteria/HPF 4+ HPF (None Seen); Bilirubin Negative (Negative); Blood, Urine 1+ (Negative); Clarity Turbid (Clear); Glucose, Urine (Dipstick) Normal (Negative); Ketone, Urine Negative (Negative); Leukocyte 500 Leu/uL (Negative); Nitrite Negative (Negative); Protein, Urine (Dipstick) 30 mg/dL (Neg-Trace); Specific Gravity, Urine 1.012 (1.002-1.036); Squamous Epithelial 0-3 HPF (0-3); Urobilinogen Normal mg/dL (Less than 2); WBC/HPF Greater than 50 HPF (0-3); pH, Urine 5.5 (5.0-9.0)
[2022-06-17 20:33] LABS: #Lymphocytes 0.6 thou/uL (1.20-3.40); #Monocytes 0.6 thou/uL (0.11-0.59); #Neutrophils 8.6 thou/uL (1.40-6.50); %Basophils 0.4 % (0.0-1.0); %Eosinophils 0.1 % (0.0-10.0); %Lymphocytes 6.5 % (21.0-51.0); %Monocytes 6.3 % (0.0-10.0); %Neutrophils 86.8 % (42.0-75.0); Hemoglobin 7.9 g/dL (14.0-18.0); Mean Corpuscular HGB CONC 31.8 g/dL (32.0-36.0); Mean Corpuscular Volume 81.7 fl (78.0-98.0); Mean Platelet Volume 8.4 fL (7.4-10.4); Platelet Count 330 10x3/uL (130-400); RBC Distribution Width 16.6 % (11.5-14.5); Red Blood Cell (RBC) Count 3.03 mill/uL (4.70-6.10); White Blood Cell (WBC) Count 9.9 10x3/uL (4.8-10.8)
[2022-06-17] MEDS ORDERED: cefTRIAXone\\ROCEPHIN 2 GM VIAL ONE (20:48)
[2022-06-17 20:57] LABS: ALT (SGPT) 23 U/L (8-55); AST (SGOT) 45 U/L (5-34); Albumin 2.6 g/dL (3.4-4.8); Alkaline Phosphatase 330 U/L (40-110); Anion Gap 11 mmol/L (10-20); BUN (Urea Nitrogen) 29 mg/dL (8.4-25.7); Bilirubin, Total 0.7 mg/dL (0.2-1.2); CK (CPK) 20 U/L (30-200); Calc. Creatinine Clearance 0 mL/min (70-130); Calcium 8.2 mg/dL (7.8-10.44); Carbon Dioxide 21 mmol/L (23-31); Chloride 110 mmol/L (98-107); Estimated GFR 50; Globulin 3.7 g/dL (2.4-3.5); Glucose 80 mg/dL (83-110); Lipase 20 U/L (8-78); Potassium 4.3 mmol/L (3.5-5.1); Protein, Total 6.3 g/dL (5.8-8.1); Sodium 138 mmol/L (136-145)
[2022-06-17] MEDS ORDERED: Acetaminophen 500 MG TAB ONE (21:13)
[2022-06-17 21:15] LABS: CKMB 0.5 ng/mL (0-6.6)
[2022-06-17] MEDS ORDERED: Vancomycin 1 GM/200 ML (FROZEN) BAG ONE (21:16)
[2022-06-17] MEDS ORDERED: Pantoprazole 80 MG in Sodium Chloride 0.9% 100 ML IVPB SCH (21:59)
[2022-06-17] MEDS ORDERED: Pantoprazole 40 MG VIAL IVP SCH (22:00)
[2022-06-17] MEDS ORDERED: Aspirin Chewable 81 MG TAB ONE (22:03)
[2022-06-17] MEDS ORDERED: Diltiazem 125 MG/25 ML ONE (22:03)
[2022-06-17] MEDS ORDERED: Sodium Chloride 0.9% 1,000 ML IV SCH (22:30)
[2022-06-17 22:38] LABS: Hemoglobin 7.5 g/dL (14.0-18.0)
[2022-06-17 23:03] LABS: Troponin I 0.069 ng/mL (< 0.028)
[2022-06-18 00:09] VITALS: BMI 22.6
[2022-06-18 00:30] LABS: Lactic Acid 3.2 mmol/L (0.5-2.2)
[2022-06-18] MEDS ORDERED: Ondansetron PF 4 MG/2 ML Vial IVP PRN (01:16)
[2022-06-18] MEDS ORDERED: Acetaminophen 650 MG Suppository PR PRN (01:16)
[2022-06-18] MEDS ORDERED: Ondansetron ODT 4 MG TAB PO PRN (01:16)
[2022-06-18] MEDS ORDERED: Ipratropium/Albuterol 3 ML NEB NEB PRN (01:20)
[2022-06-18 02:55] LABS: Anion Gap 13 mmol/L (10-20); BUN (Urea Nitrogen) 26 mg/dL (8.4-25.7); Calc. Creatinine Clearance 46 mL/min (70-130); Carbon Dioxide 17 mmol/L (23-31); Chloride 112 mmol/L (98-107); Estimated GFR 52; Glucose 90 mg/dL (83-110); Potassium 3.8 mmol/L (3.5-5.1); Sodium 138 mmol/L (136-145)
[2022-06-18 02:57] LABS: Troponin I 0.646 ng/mL (< 0.028)
[2022-06-18 04:32] LABS: Hemoglobin 7.9 g/dL (14.0-18.0)
[2022-06-18 04:49] LABS: Lactic Acid 1.9 mmol/L (0.5-2.2)
[2022-06-18 04:55] LABS: Troponin I 0.963 ng/mL (< 0.028)
[2022-06-18 08:58] LABS: Hemoglobin 8.1 g/dL (14.0-18.0)
[2022-06-18] MEDS ORDERED: Vancomycin 1.5 GRAM/300 ML BAG IVPB SCH (09:00)
[2022-06-18] MEDS ORDERED: Pantoprazole 40 MG VIAL IVP SCH (09:00)
[2022-06-18] MEDS: Cefepime 2 GM in Sodium Chloride 0.9% 100 ML IVPB SCH ×2 (09:03→20:09)
[2022-06-18] MEDS: Sodium Chloride 0.9% 1,000 ML IV SCH ×2 (09:04→14:32)
[2022-06-18] MEDS: Pantoprazole 40 MG VIAL IVP SCH ×2 (09:04→20:13)
[2022-06-18 09:42] LABS: Troponin I 2.202 ng/mL (< 0.028)
[2022-06-18] MEDS: Gabapentin 100 MG CAP PO SCH ×2 (14:30→20:12)
[2022-06-18] MEDS: Mometasone 100 MCG/Formoterol 5 MCG 120 PUFF INHALER INH SCH (18:45)
[2022-06-18] MEDS: HYDROcodone/Acetaminophen 5/325 mg Tablet PO PRN (20:22)
[2022-06-18] MEDS ORDERED: Vancomycin 1 GM in Premix Bag 1 BAG IVPB SCH (21:00)
[2022-06-19] MEDS: Sodium Chloride 0.9% 1,000 ML IV SCH ×4 (00:04→22:03)
[2022-06-19] MEDS: Mometasone 100 MCG/Formoterol 5 MCG 120 PUFF INHALER INH SCH ×2 (07:08→19:02)
[2022-06-19] MEDS: Cefepime 2 GM in Sodium Chloride 0.9% 100 ML IVPB SCH (08:37)
[2022-06-19] MEDS: Losartan 25 MG TAB PO SCH (08:38)
[2022-06-19] MEDS: Gabapentin 100 MG CAP PO SCH ×3 (08:38→20:16)
[2022-06-19] MEDS: Pantoprazole 40 MG VIAL IVP SCH ×2 (08:38→20:18)
[2022-06-19] MEDS: Dexamethasone 4 MG TAB PO SCH (08:39)
[2022-06-19] MEDS: MULTIVIT/IRON SULF/FOLIC ACID 1 EACH TAB PO SCH ×2 (08:39→09:23)
[2022-06-19] MEDS: HYDROcodone/Acetaminophen 5/325 mg Tablet PO PRN (09:22)
[2022-06-19] MEDS: Ciprofloxacin 500 MG TAB PO SCH (20:16)
[2022-06-20] MEDS: Ciprofloxacin 500 MG TAB PO SCH ×2 (05:09→22:10)
[2022-06-20] MEDS: Mometasone 100 MCG/Formoterol 5 MCG 120 PUFF INHALER INH SCH ×2 (06:59→18:59)
[2022-06-20 08:01] LABS: #Lymphocytes 1.1 thou/uL (1.20-3.40); #Monocytes 1.7 thou/uL (0.11-0.59); #Neutrophils 12.2 thou/uL (1.40-6.50); %Basophils 0.2 % (0.0-1.0); %Eosinophils 0.2 % (0.0-10.0); %Lymphocytes 7.4 % (21.0-51.0); %Monocytes 11.3 % (0.0-10.0); Mean Corpuscular HGB CONC 31.7 g/dL (32.0-36.0); Mean Corpuscular Hemoglobin 26.1 pg (27.0-31.0); Mean Corpuscular Volume 82.3 fl (78.0-98.0); Mean Platelet Volume 8.4 fL (7.4-10.4); Platelet Count 324 10x3/uL (130-400); RBC Distribution Width 16.1 % (11.5-14.5); Red Blood Cell (RBC) Count 3.08 mill/uL (4.70-6.10)
[2022-06-20 08:25] LABS: ALT (SGPT) 20 U/L (8-55); AST (SGOT) 54 U/L (5-34); Albumin 2.4 g/dL (3.4-4.8); Alkaline Phosphatase 252 U/L (40-110); Anion Gap 11 mmol/L (10-20); BUN (Urea Nitrogen) 21 mg/dL (8.4-25.7); Bilirubin, Total 0.4 mg/dL (0.2-1.2); Calc. Creatinine Clearance 52 mL/min (70-130); Calcium 8.2 mg/dL (7.8-10.44); Carbon Dioxide 15 mmol/L (23-31); Chloride 115 mmol/L (98-107); Estimated GFR 58; Globulin 3.6 g/dL (2.4-3.5); Glucose 86 mg/dL (83-110); Potassium 4.3 mmol/L (3.5-5.1); Sodium 137 mmol/L (136-145)
[2022-06-20] MEDS: Dexamethasone 4 MG TAB PO SCH (08:39)
[2022-06-20] MEDS: Gabapentin 100 MG CAP PO SCH ×3 (08:39→22:10)
[2022-06-20] MEDS: Losartan 25 MG TAB PO SCH (08:40)
[2022-06-20] MEDS: Pantoprazole 40 MG VIAL IVP SCH ×2 (08:41→22:10)
[2022-06-20] MEDS: Sodium Chloride 0.9% 1,000 ML IV SCH (10:49)
[2022-06-20] MEDS: MULTIVIT/IRON SULF/FOLIC ACID 1 EACH TAB PO SCH (11:15)
[2022-06-21] MEDS: Ciprofloxacin 500 MG TAB PO SCH ×2 (05:16→20:51)
[2022-06-21] MEDS: Mometasone 100 MCG/Formoterol 5 MCG 120 PUFF INHALER INH SCH ×2 (07:47→19:10)
[2022-06-21] MEDS ORDERED: FLU VACC QS2022-23(65YR UP)/PF 240 MCG/0.7 ML SYRINGE IM ONE (09:00)
[2022-06-21] MEDS: HYDROcodone/Acetaminophen 5/325 mg Tablet PO PRN (09:18)
[2022-06-21] MEDS: Gabapentin 100 MG CAP PO SCH ×3 (09:19→21:06)
[2022-06-21] MEDS: Dexamethasone 4 MG TAB PO SCH (09:19)
[2022-06-21] MEDS: MULTIVIT/IRON SULF/FOLIC ACID 1 EACH TAB PO SCH (09:19)
[2022-06-21] MEDS: Pantoprazole 40 MG VIAL IVP SCH ×2 (09:19→20:52)
[2022-06-21] MEDS: Losartan 25 MG TAB PO SCH (09:20)
[2022-06-22] MEDS: Ciprofloxacin 500 MG TAB PO SCH ×2 (05:35→20:28)
[2022-06-22] MEDS: Mometasone 100 MCG/Formoterol 5 MCG 120 PUFF INHALER INH SCH ×2 (06:48→18:41)
[2022-06-22] MEDS: Losartan 25 MG TAB PO SCH (09:00)
[2022-06-22] MEDS: Gabapentin 100 MG CAP PO SCH ×4 (09:01→20:28)
[2022-06-22] MEDS: MULTIVIT/IRON SULF/FOLIC ACID 1 EACH TAB PO SCH (09:01)
[2022-06-22] MEDS: Pantoprazole 40 MG VIAL IVP SCH ×2 (09:01→20:29)
[2022-06-22] MEDS: Dexamethasone 4 MG TAB PO SCH (09:02)
[2022-06-22] MEDS: Acetaminophen 325 MG TAB PO PRN ×2 (09:16→20:29)
[2022-06-23] MEDS: HYDROcodone/Acetaminophen 5/325 mg Tablet PO PRN (00:29)
[2022-06-23] MEDS: Ciprofloxacin 500 MG TAB PO SCH (05:37)
[2022-06-23] MEDS: Mometasone 100 MCG/Formoterol 5 MCG 120 PUFF INHALER INH SCH ×2 (07:12→18:23)
[2022-06-23 07:49] VITALS: TEMP 97.7
[2022-06-23] MEDS: MULTIVIT/IRON SULF/FOLIC ACID 1 EACH TAB PO SCH (10:00)
[2022-06-23] MEDS: Gabapentin 100 MG CAP PO SCH ×2 (10:01→15:26)
[2022-06-23] MEDS: Losartan 25 MG TAB PO SCH (10:01)
[2022-06-23] MEDS: Dexamethasone 4 MG TAB PO SCH (10:01)
[2022-06-23] MEDS: Pantoprazole 40 MG VIAL IVP SCH (10:03)
[2022-06-23 17:14] VITALS: BP 120/67
== END 2022-06-23 18:57 | disposition home or self-care (01) | DRG 698 ==
LOC: ERS 18:27 → 2NO 21:43 → T4-B 06-20 21:58
PROVIDERS: ADMIT Student in an Organized Health Care Education/Training Program; ATTEND Internal Medicine
PROC: 3E03329 Introduction of Other Anti-infective into Peripheral Vein, Percutaneous Approach (ICD-10-PCS; 2022-06-17)
PROC: 30233N1 Transfusion of Nonautologous Red Blood Cells into Peripheral Vein, Percutaneous Approach (ICD-10-PCS; principal; 2022-06-18)
DX: T83.511A Infection and inflammatory reaction due to indwelling urethral catheter, initial encounter (principal); A41.51 Sepsis due to Escherichia coli [E. coli]; I21.A1 Myocardial infarction type 2; I50.30 Unspecified diastolic (congestive) heart failure; I13.0 Hypertensive heart and chronic kidney disease with heart failure and stage 1 through stage 4 chronic kidney disease, or unspecified chronic kidney disease; K92.1 Melena; D62 Acute posthemorrhagic anemia; N30.00 Acute cystitis without hematuria; Z16.11 Resistance to penicillins; J44.9 Chronic obstructive pulmonary disease, unspecified; I25.10 Atherosclerotic heart disease of native coronary artery without angina pectoris; E78.5 Hyperlipidemia, unspecified; E78.00 Pure hypercholesterolemia, unspecified; I35.0 Nonrheumatic aortic (valve) stenosis; N18.2 Chronic kidney disease, stage 2 (mild); D63.1 Anemia in chronic kidney disease; Z20.822 Contact with and (suspected) exposure to COVID-19; Z95.5 Presence of coronary angioplasty implant and graft; Z88.8 Allergy status to other drugs, medicaments and biological substances; Z79.899 Other long term (current) drug therapy; Z79.51 Long term (current) use of inhaled steroids; Y83.8 Other surgical procedures as the cause of abnormal reaction of the patient, or of later complication, without mention of misadventure at the time of the procedure
CPT/HCPCS: 36415; 36430; 51702; 70450; 71045; 74176; 80048; 80053; 81003; 81015; 82550; 82553; 83605; 83690; 83880; 84484; 85025; 86850; 86900; 86901; 87040; 87077; 87086; 87186; 93005; 93010; 93306; 96361; 96365; 96366; 96368; C9113; J0692; J0696; J3370-JW; J3490; J7050; J8540; P9016; U0003; U0005

== ENCOUNTER 2022-07-17 13:09 | Inpatient (IN) | payer MEDICARE, OTHER ==
[2022-07-17 13:50] LABS: #Basophils 0.1 thou/uL (0.0-0.2); #Lymphocytes 0.8 thou/uL (1.20-3.40); #Monocytes 0.6 thou/uL (0.11-0.59); #Neutrophils 8.2 thou/uL (1.40-6.50); %Basophils 0.7 % (0.0-1.0); %Eosinophils 0.3 % (0.0-10.0); %Lymphocytes 7.9 % (21.0-51.0); %Monocytes 6.2 % (0.0-10.0); %Neutrophils 84.8 % (42.0-75.0); Hemoglobin 10.5 g/dL (14.0-18.0); Mean Corpuscular HGB CONC 31.4 g/dL (32.0-36.0); Mean Corpuscular Hemoglobin 25.7 pg (27.0-31.0); Mean Corpuscular Volume 81.7 fl (78.0-98.0); Platelet Count 404 10x3/uL (130-400); RBC Distribution Width 16.6 % (11.5-14.5); Red Blood Cell (RBC) Count 4.08 mill/uL (4.70-6.10); White Blood Cell (WBC) Count 9.7 10x3/uL (4.8-10.8)
[2022-07-17 14:17] LABS: ALT (SGPT) 40 U/L (8-55); AST (SGOT) 119 U/L (5-34); Albumin 2.8 g/dL (3.4-4.8); Alkaline Phosphatase 506 U/L (40-110); Anion Gap 21 mmol/L (10-20); BUN (Urea Nitrogen) 54 mg/dL (8.4-25.7); Calc. Creatinine Clearance 0 mL/min (70-130); Calcium 9.1 mg/dL (7.8-10.44); Carbon Dioxide 15 mmol/L (23-31); Chloride 105 mmol/L (98-107); Estimated GFR 34; Glucose 108 mg/dL (83-110); Lipase 41 U/L (8-78); Magnesium 2.5 mg/dL (1.6-2.6); Potassium 5.9 mmol/L (3.5-5.1); Protein, Total 7.8 g/dL (5.8-8.1); Sodium 135 mmol/L (136-145)
[2022-07-17] MEDS ORDERED: Acetaminophen 500 MG TAB ONE (14:17)
[2022-07-17] MEDS ORDERED: Morphine 4 MG/ML VIAL ONE (14:17)
[2022-07-17] MEDS ORDERED: Ondansetron PF 4 MG/2 ML Vial ONE (14:17)
[2022-07-17] MEDS ORDERED: Iopamidol 370 76% 100 ML VIAL ONE ×2 (14:22)
[2022-07-17] MEDS ORDERED: Heparin 25,000 units/D5W 500 ML ONE (15:01)
[2022-07-17] MEDS ORDERED: Heparin 10,000 UNITS/ 10 ML VIAL ONE (15:01)
[2022-07-17 15:09] LABS: CKMB 1.1 ng/mL (0-6.6)
[2022-07-17] MEDS ORDERED: HYDROcodone/Acetaminophen 5/325 mg Tablet PO PRN (16:13)
[2022-07-17 16:21] LABS: INR-International Normal Ratio 2.1; Prothrombin Time 24.3 sec (12.0-14.7)
[2022-07-17 16:38] LABS: Anion Gap 15 mmol/L (10-20); BUN (Urea Nitrogen) 52 mg/dL (8.4-25.7); Calc. Creatinine Clearance 0 mL/min (70-130); Calcium 8.5 mg/dL (7.8-10.44); Carbon Dioxide 19 mmol/L (23-31); Chloride 105 mmol/L (98-107); Estimated GFR 39; Glucose 97 mg/dL (83-110); Potassium 4.8 mmol/L (3.5-5.1); Sodium 134 mmol/L (136-145)
[2022-07-17 16:38] LABS: PTT Greater than 250.0 sec (22.9-36.1)
[2022-07-17] MEDS: Mometasone 100 MCG/Formoterol 5 MCG 120 PUFF INHALER INH SCH (19:00)
[2022-07-17] MEDS ORDERED: Gabapentin 100 MG CAP PO SCH (21:00)
[2022-07-18] MEDS ORDERED: Rosuvastatin 10 MG TAB PO SCH (09:00)
[2022-07-18] MEDS ORDERED: Dexamethasone 4 MG TAB PO SCH (09:00)
[2022-07-18] MEDS ORDERED: predniSONE 20 MG TAB ONE (15:56)
[2022-07-19] MEDS: Mometasone 100 MCG/Formoterol 5 MCG 120 PUFF INHALER INH SCH (08:21)
== END 2022-07-17 17:59 | disposition home or self-care (01) | DRG 180 ==
LOC: ERS 13:09 → ERHOLD 16:13
PROVIDERS: ADMIT Family Medicine; ATTEND Family Medicine
DX: C34.90 Malignant neoplasm of unspecified part of unspecified bronchus or lung (principal); I21.4 Non-ST elevation (NSTEMI) myocardial infarction; C78.7 Secondary malignant neoplasm of liver and intrahepatic bile duct; C79.31 Secondary malignant neoplasm of brain; R64 Cachexia; N17.9 Acute kidney failure, unspecified; Z51.5 Encounter for palliative care; E87.5 Hyperkalemia; I25.10 Atherosclerotic heart disease of native coronary artery without angina pectoris; E78.5 Hyperlipidemia, unspecified; F17.210 Nicotine dependence, cigarettes, uncomplicated; Z88.5 Allergy status to narcotic agent; Z79.51 Long term (current) use of inhaled steroids; Z79.899 Other long term (current) drug therapy; Z95.5 Presence of coronary angioplasty implant and graft
CPT/HCPCS: 36415; 71045; 71275; 80053; 82553; 83690; 83735; 83880; 84484; 85025; 85610; 85730; 93005; 96361; 96374; 96375; J1644; J2270; J2405; J7512; Q9967

== ENCOUNTER 2022-07-23 19:55 | Emergency (ER) | payer OTHER | END 2022-07-23 20:00 | LOC: ERS 19:55 | DX: I46.9 Cardiac arrest, cause unspecified (principal) | CPT/HCPCS: 96374; 96375 ==